=== PATIENT | male | born 1980 | race Two or more races ===

== ENCOUNTER 2021-05-04 12:41 | Inpatient (IN) | payer OTHER ==
[~2021-05-04] VITALS: Ht 172.7 cm; Wt 101.1 kg
[2021-05-04] MEDS ORDERED: FUROSEMIDE 40 MG/4 ML VIAL IV ONE ×2 (13:15→22:00)
[2021-05-04 13:52] LABS: Basophils # (auto) 0 10 ^3/uL (0-0.2); Eosinophils # (auto) 0 10 ^3/uL (0-0.8); Neutrophils # (auto) 2.5 10 ^3/uL (1.6-8.6); Red Cell Distribution Width 15.3 % (11.8-14.3); White Blood Cell 3.5 10^3/uL (4.4-10.8)
[2021-05-04 13:54] LABS: Eosinophils % (auto) 0.8 % (0.0-7.0); Hematocrit 49.5 % (41.0-53.0); Hemoglobin 17.3 g/dL (13.5-17.5); Lymphocytes # (auto) 0.6 10 ^3/uL (0.4-5.4); Lymphocytes % (auto) 15.6 % (10.0-50.0); Mean Corpuscular Hemoglobin 35.1 pg (28.0-32.0); Mean Corpuscular Hgb Conc. 34.9 g/dL (32.0-36.0); Mean Corpuscular Volume 100.5 fL (80.0-100.0); Monocytes # (auto) 0.4 10 ^3/uL (0-1.3); Monocytes % (auto) 12.5 % (0.0-12.0); Neutrophils % (auto) 70.1 % (37.0-80.0); Nucleated Red Blood Cells % 0.8 %; Red Blood Cells 4.93 10^6/uL (4.5-5.90)
[2021-05-04 14:11] LABS: Albumin 3.8 g/dL (3.4-5.0); Calcium 9.1 mg/dL (8.5-10.1); Magnesium 2.4 mg/dL (1.6-2.6)
[2021-05-04 14:16] LABS: BUN/Creatinine Ratio 14.6; Bilirubin, Total 4.1 mg/dL (0.2-1.0); Total Protein 8.3 g/dL (6.4-8.2)
[2021-05-04 14:23] LABS: Potassium 5.2 mmol/L (3.5-5.1)
[2021-05-04] MEDS ORDERED: chlordiazePOXIDE HCL 25 MG CAP PO ONE (17:30)
[2021-05-04] MEDS ORDERED: NITROGLYCERIN 0.4 MG SL TAB SL PRN (17:30)
[2021-05-04] MEDS ORDERED: ONDANSETRON HCL 4 MG/2 ML VIAL IV PRN (17:30)
[2021-05-04] MEDS ORDERED: FOLIC ACID 1 MG TAB PO ONE (17:30)
[2021-05-04] MEDS ORDERED: MULTIPLE VITAMIN TAB PO ONE (17:30)
[2021-05-04] MEDS ORDERED: MORPHINE SULFATE INJECTION 2 MG/ML SYRG IV PRN (17:30)
[2021-05-04] MEDS ORDERED: THIAMINE HCL 100 MG TAB PO ONE (17:30)
[2021-05-04] MEDS ORDERED: THIAMINE 100mg/ml INJ (200mg/2ml VIAL) IV ONE (17:30)
[2021-05-04] MEDS ORDERED: NICOTINE 14 MG/24HR TOPICAL PATCH TD ONE (18:15)
[2021-05-04 21:00] VITALS: BP 107/65
[2021-05-04] MEDS: LORazepam 0.5 MG TAB PO PRN (21:08)
[2021-05-04 22:00] VITALS: BP 107/65
[2021-05-05 01:35] LABS: Amphetamine Screen, Urine NEGATIVE (NEGATIVE); Barbiturate Scree,Urine NEGATIVE (NEGATIVE); Benzodiazephine Screen, Urine NEGATIVE (NEGATIVE); Cannabinoid Screen, Urine NEGATIVE (NEGATIVE); Cocaine Screen, Urine NEGATIVE (NEGATIVE); Opiate Scree,Urine NEGATIVE (NEGATIVE); Phencyclidine Screen, Urine NEGATIVE (NEGATIVE)
[2021-05-05 02:02] LABS: Urine Bacteria NONE SEEN /hpf (None Seen); Urine Blood Negative /uL (Negative); Urine Specific Gravity 1.004 (1.001-1.035); Urine WBC <1 /hpf (0 - 3)
[2021-05-05] MEDS ORDERED: LEVO75TA6 PO (04:59)
[2021-05-05 05:00] VITALS: BP 97/61
[2021-05-05 06:36] LABS: Basophils # (auto) 0 10 ^3/uL (0-0.2); Basophils % (auto) 1.2 % (0.0-2.0); Hematocrit 43.2 % (41.0-53.0); Hemoglobin 15.1 g/dL (13.5-17.5); Lymphocytes # (auto) 0.5 10 ^3/uL (0.4-5.4); Monocytes # (auto) 0.6 10 ^3/uL (0-1.3); Neutrophils # (auto) 2.4 10 ^3/uL (1.6-8.6); Red Cell Distribution Width 15.1 % (11.8-14.3)
[2021-05-05 06:40] LABS: Eosinophils # (auto) 0 10 ^3/uL (0-0.8); Eosinophils % (auto) 1.1 % (0.0-7.0); Lymphocytes % (auto) 13.4 % (10.0-50.0); Mean Corpuscular Hemoglobin 34.8 pg (28.0-32.0); Mean Corpuscular Hgb Conc. 34.9 g/dL (32.0-36.0); Mean Corpuscular Volume 99.8 fL (80.0-100.0); Monocytes % (auto) 16.9 % (0.0-12.0); Neutrophils % (auto) 67.4 % (37.0-80.0); Nucleated Red Blood Cells % 0.6 %; Red Blood Cells 4.33 10^6/uL (4.5-5.90); White Blood Cell 3.5 10^3/uL (4.4-10.8)
[2021-05-05 07:17] LABS: Calcium 8.7 mg/dL (8.5-10.1); Potassium 3.8 mmol/L (3.5-5.1)
[2021-05-05 08:00] VITALS: BP 102/76
[2021-05-05] MEDS ORDERED: PANTOPRAZOLE 40 MG/10 ML VIAL INJ IV ONE (10:00)
[2021-05-05 12:00] VITALS: BP 94/65
[2021-05-05 13:14] VITALS: BP 120/71
[2021-05-05] MEDS: LORazepam 0.5 MG TAB PO PRN (13:16)
[2021-05-05 16:00] VITALS: BP 101/66
[2021-05-05 22:47] VITALS: BP 97/46
[2021-05-06] VITALS (8 sets, daily range): BP systolic 95–123; BP diastolic 61–84
[2021-05-06] MEDS: LORazepam 0.5 MG TAB PO PRN ×3 (01:38→21:48)
[2021-05-06] MEDS: LEVOTHYROXINE SODIUM 25 MCG TAB PO SCH (09:00)
[2021-05-06 09:03] LABS: Basophils # (auto) 0.2 10 ^3/uL (0-0.2); Eosinophils # (auto) 0.1 10 ^3/uL (0-0.8); Hemoglobin 15.4 g/dL (13.5-17.5); Lymphocytes # (auto) 0.4 10 ^3/uL (0.4-5.4); Monocytes # (auto) 0.4 10 ^3/uL (0-1.3); Neutrophils # (auto) 2.2 10 ^3/uL (1.6-8.6)
[2021-05-06 09:05] LABS: Basophils % (auto) 5.5 % (0.0-2.0); Eosinophils % (auto) 2.5 % (0.0-7.0); Hematocrit 44.1 % (41.0-53.0); Lymphocytes % (auto) 11.5 % (10.0-50.0); Mean Corpuscular Hgb Conc. 34.9 g/dL (32.0-36.0); Mean Corpuscular Volume 100.3 fL (80.0-100.0); Neutrophils % (auto) 69.5 % (37.0-80.0); Nucleated Red Blood Cells % 0.3 %; Red Blood Cells 4.39 10^6/uL (4.5-5.90); Red Cell Distribution Width 15.2 % (11.8-14.3); White Blood Cell 3.2 10^3/uL (4.4-10.8)
[2021-05-06 09:18] LABS: BUN/Creatinine Ratio 18.6
[2021-05-06 09:20] LABS: Bilirubin, Total 3.7 mg/dL (0.2-1.0); Total Protein 6.7 g/dL (6.4-8.2)
[2021-05-06] MEDS ORDERED: FUROSEMIDE 40 MG/4 ML VIAL IV ONE (09:45)
[2021-05-06] MEDS: ENOXAPARIN SOD 40 MG/0.4 ML SYRINGE SC SCH (10:00)
[2021-05-06] MEDS ORDERED: IOHEXOL 350 MG/ML 100ML IJ ONE ×2 (15:15→16:24)
[2021-05-06] MEDS: FUROSEMIDE 40 MG/4 ML VIAL IV SCH (18:00)
[2021-05-07] MEDS: FUROSEMIDE 40 MG/4 ML VIAL IV SCH ×2 (05:11→18:00)
[2021-05-07 05:36] VITALS: BP 93/49
[2021-05-07 05:58] LABS: Basophils # (auto) 0 10 ^3/uL (0-0.2); Basophils % (auto) 1.1 % (0.0-2.0); Eosinophils # (auto) 0.1 10 ^3/uL (0-0.8); Eosinophils % (auto) 1.9 % (0.0-7.0); Hematocrit 46.7 % (41.0-53.0); Hemoglobin 16.1 g/dL (13.5-17.5); Lymphocytes # (auto) 0.5 10 ^3/uL (0.4-5.4); Lymphocytes % (auto) 12.7 % (10.0-50.0); Mean Corpuscular Hemoglobin 34.5 pg (28.0-32.0); Mean Corpuscular Hgb Conc. 34.4 g/dL (32.0-36.0); Mean Corpuscular Volume 100.5 fL (80.0-100.0); Monocytes # (auto) 0.6 10 ^3/uL (0-1.3); Monocytes % (auto) 15.9 % (0.0-12.0); Neutrophils # (auto) 2.5 10 ^3/uL (1.6-8.6); Neutrophils % (auto) 68.4 % (37.0-80.0); Nucleated Red Blood Cells % 0.2 %; Red Blood Cells 4.65 10^6/uL (4.5-5.90); Red Cell Distribution Width 15.2 % (11.8-14.3); White Blood Cell 3.6 10^3/uL (4.4-10.8)
[2021-05-07 06:15] LABS: Albumin 2.9 g/dL (3.4-5.0); Calcium 8.3 mg/dL (8.5-10.1)
[2021-05-07 06:19] LABS: Bilirubin, Total 2.6 mg/dL (0.2-1.0); Total Protein 6.8 g/dL (6.4-8.2)
[2021-05-07] MEDS: LEVOTHYROXINE SODIUM 25 MCG TAB PO SCH ×2 (06:28→09:18)
[2021-05-07 08:41] VITALS: BP 107/66
[2021-05-07] MEDS: ENOXAPARIN SOD 40 MG/0.4 ML SYRINGE SC SCH (09:15)
[2021-05-07 11:59] VITALS: BP 99/64
[2021-05-07 16:00] VITALS: BP 102/66
[2021-05-07 18:55] VITALS: BP 108/72
[2021-05-07] MEDS: LORazepam 0.5 MG TAB PO PRN (18:58)
[2021-05-07 22:09] VITALS: BP 102/60
[2021-05-08 05:00] VITALS: BP 98/63
[2021-05-08 05:39] LABS: Basophils # (auto) 0 10 ^3/uL (0-0.2); Eosinophils # (auto) 0.1 10 ^3/uL (0-0.8); Lymphocytes # (auto) 0.5 10 ^3/uL (0.4-5.4); Monocytes # (auto) 0.5 10 ^3/uL (0-1.3); Neutrophils % (auto) 63.4 % (37.0-80.0); Red Cell Distribution Width 15.3 % (11.8-14.3)
[2021-05-08 05:43] LABS: Basophils % (auto) 0.9 % (0.0-2.0); Eosinophils % (auto) 3.3 % (0.0-7.0); Hematocrit 49.1 % (41.0-53.0); Lymphocytes % (auto) 17.3 % (10.0-50.0); Mean Corpuscular Hemoglobin 35.2 pg (28.0-32.0); Mean Corpuscular Hgb Conc. 34.7 g/dL (32.0-36.0); Mean Corpuscular Volume 101.4 fL (80.0-100.0); Monocytes % (auto) 15.1 % (0.0-12.0); Nucleated Red Blood Cells % 0.7 %; Red Blood Cells 4.84 10^6/uL (4.5-5.90); White Blood Cell 3.1 10^3/uL (4.4-10.8)
[2021-05-08 05:48] LABS: INR 1.28 (0.9-1.15); Partial Thromboplastin Time 29.1 sec (23.6-33.0)
[2021-05-08] MEDS: FUROSEMIDE 40 MG/4 ML VIAL IV SCH (06:00)
[2021-05-08 06:22] LABS: BUN/Creatinine Ratio 21.2; Bilirubin, Total 2.4 mg/dL (0.2-1.0); Calcium 9.4 mg/dL (8.5-10.1); Total Protein 7.1 g/dL (6.4-8.2)
[2021-05-08 09:28] VITALS: BP 99/75
[2021-05-08] MEDS ORDERED: IOHEXOL 350 MG/ML 100ML IJ ONE (10:20)
[2021-05-08] MEDS ORDERED: LIDOCAINE 2%HCL (LOCAL ANESTH.) INJ 20ML MDV ONE (10:21)
[2021-05-08] MEDS ORDERED: MIDAZOLAM HCL 2MG/2ML 2ml VIAL (1mg/ml) ONE (10:24)
[2021-05-08] MEDS ORDERED: fentaNYL CITRATE 100 MCG/2 ML VL ONE (10:24)
[2021-05-08] MEDS ORDERED: ANGIOMAX 250 MG VIAL IV ONE (10:24)
[2021-05-08] MEDS ORDERED: SODIUM CHL 0.9% 0 ML ONE (10:24)
[2021-05-08 14:52] VITALS: BP 101/75
[2021-05-08] MEDS: LORazepam 0.5 MG TAB PO PRN (16:00)
[2021-05-08 17:00] VITALS: BP 98/68
[2021-05-08] MEDS: FUROSEMIDE 20 MG/2 ML VIAL IV SCH (18:00)
[2021-05-08 21:46] VITALS: BP 101/68
[2021-05-09 05:15] VITALS: BP 105/70
[2021-05-09] MEDS: LEVOTHYROXINE SODIUM 25 MCG TAB PO SCH (06:18)
[2021-05-09] MEDS: FUROSEMIDE 20 MG/2 ML VIAL IV SCH (06:18)
[2021-05-09 08:00] VITALS: BP 102/75
[2021-05-09 10:16] LABS: Albumin 3.3 g/dL (3.4-5.0); BUN/Creatinine Ratio 20.2; Calcium 9.5 mg/dL (8.5-10.1); Potassium 4.2 mmol/L (3.5-5.1)
[2021-05-09 10:18] LABS: Basophils # (auto) 0.1 10 ^3/uL (0-0.2); Basophils % (auto) 1.6 % (0.0-2.0); Eosinophils # (auto) 0.1 10 ^3/uL (0-0.8); Eosinophils % (auto) 3.4 % (0.0-7.0); Hematocrit 51.6 % (41.0-53.0); Hemoglobin 17.7 g/dL (13.5-17.5); Lymphocytes # (auto) 0.5 10 ^3/uL (0.4-5.4); Lymphocytes % (auto) 15.1 % (10.0-50.0); Mean Corpuscular Hemoglobin 34.7 pg (28.0-32.0); Mean Corpuscular Hgb Conc. 34.3 g/dL (32.0-36.0); Mean Corpuscular Volume 101.1 fL (80.0-100.0); Monocytes # (auto) 0.6 10 ^3/uL (0-1.3); Monocytes % (auto) 16.5 % (0.0-12.0); Neutrophils # (auto) 2.2 10 ^3/uL (1.6-8.6); Neutrophils % (auto) 63.4 % (37.0-80.0); Nucleated Red Blood Cells % 0.1 %; Red Cell Distribution Width 15.1 % (11.8-14.3); White Blood Cell 3.5 10^3/uL (4.4-10.8)
[2021-05-09 10:27] LABS: Bilirubin, Total 2.7 mg/dL (0.2-1.0); Total Protein 7.4 g/dL (6.4-8.2)
[2021-05-09] MEDS: LORazepam 0.5 MG TAB PO PRN (10:27)
[2021-05-09] MEDS ORDERED: SODIUM CHLORIDE 0.9% 500 ML IV ONE (11:15)
[2021-05-09] MEDS: SILDENAFIL CITRATE 20 MG TAB PO SCH ×2 (15:30→20:43)
[2021-05-09 22:29] VITALS: BP 98/63
[2021-05-10 05:08] VITALS: BP 102/64
[2021-05-10] MEDS: LEVOTHYROXINE SODIUM 25 MCG TAB PO SCH (05:58)
[2021-05-10] MEDS: SILDENAFIL CITRATE 20 MG TAB PO SCH (08:00)
[2021-05-10] MEDS ORDERED: GADOTERATE MEG 10 MMOL/20ml INJ (0.5MMOL/ml) IV ONE (08:29)
[2021-05-10 08:49] LABS: Eosinophils # (auto) 0.1 10 ^3/uL (0-0.8); Hematocrit 52.5 % (41.0-53.0); Lymphocytes # (auto) 0.4 10 ^3/uL (0.4-5.4); Mean Corpuscular Hgb Conc. 34.2 g/dL (32.0-36.0); Monocytes # (auto) 0.4 10 ^3/uL (0-1.3); Neutrophils # (auto) 2.5 10 ^3/uL (1.6-8.6); Red Cell Distribution Width 15.1 % (11.8-14.3); White Blood Cell 3.4 10^3/uL (4.4-10.8)
[2021-05-10 08:52] LABS: Basophils # (auto) 0 10 ^3/uL (0-0.2); Basophils % (auto) 0.9 % (0.0-2.0); Eosinophils % (auto) 2.5 % (0.0-7.0); Lymphocytes % (auto) 11.8 % (10.0-50.0); Mean Corpuscular Hemoglobin 34.5 pg (28.0-32.0); Mean Corpuscular Volume 101.1 fL (80.0-100.0); Monocytes % (auto) 12.4 % (0.0-12.0); Neutrophils % (auto) 72.4 % (37.0-80.0); Nucleated Red Blood Cells % 2.7 %
[2021-05-10 09:00] VITALS: BP 99/65
[2021-05-10 09:18] LABS: Albumin 3.2 g/dL (3.4-5.0); Calcium 8.8 mg/dL (8.5-10.1); Potassium 4.3 mmol/L (3.5-5.1)
[2021-05-10 09:22] LABS: BUN/Creatinine Ratio 22.2; Bilirubin, Total 3.2 mg/dL (0.2-1.0); Total Protein 7.3 g/dL (6.4-8.2)
[2021-05-10] MEDS ORDERED: SODIUM CHLORIDE 0.9% 1,000 ML IV SCH (10:15)
[2021-05-10] MEDS ORDERED: SILD20TA PO (10:37)
[2021-05-10] MEDS ORDERED: LEV25T PO (10:37)
[2021-05-10 11:32] VITALS: BP 99/65
[2021-05-10 13:00] VITALS: BP 100/75
== END 2021-05-10 13:27 | disposition home or self-care (01) | DRG 192 ==
LOC: ER 12:41 → EDBD 12:41 → OVERFLOW 17:16 → WEST WING 19:56 → TELE-WESTW 05-07 11:29
PROVIDERS: ADMIT Internal Medicine; ATTEND Internal Medicine
PROC: 4A023N8 Measurement of Cardiac Sampling and Pressure, Bilateral, Percutaneous Approach (ICD-10-PCS; principal; 2021-05-08)
PROC: B2111ZZ Fluoroscopy of Multiple Coronary Arteries using Low Osmolar Contrast (ICD-10-PCS; 2021-05-08)
PROC: B2151ZZ Fluoroscopy of Left Heart using Low Osmolar Contrast (ICD-10-PCS; 2021-05-08)
DX: I50.33 Acute on chronic diastolic (congestive) heart failure (principal); K70.40 Alcoholic hepatic failure without coma; I27.29 Other secondary pulmonary hypertension; D69.6 Thrombocytopenia, unspecified; I31.3 Pericardial effusion (noninflammatory); I95.9 Hypotension, unspecified; E87.1 Hypo-osmolality and hyponatremia; E87.5 Hyperkalemia; E03.9 Hypothyroidism, unspecified; F17.210 Nicotine dependence, cigarettes, uncomplicated; D69.59 Other secondary thrombocytopenia; I07.1 Rheumatic tricuspid insufficiency; E66.9 Obesity, unspecified; F10.229 Alcohol dependence with intoxication, unspecified; Z20.822 Contact with and (suspected) exposure to COVID-19; K74.60 Unspecified cirrhosis of liver; R74.8 Abnormal levels of other serum enzymes; F10.239 Alcohol dependence with withdrawal, unspecified; K70.11 Alcoholic hepatitis with ascites; Z91.14 Patient's other noncompliance with medication regimen; Z86.718 Personal history of other venous thrombosis and embolism; Z83.3 Family history of diabetes mellitus; Z88.0 Allergy status to penicillin; Z68.34 Body mass index [BMI] 34.0-34.9, adult; Y90.5 Blood alcohol level of 100-119 mg/100 ml
CPT/HCPCS: 36415; 71045; 71275; 74183; 76705; 78582; 80048; 80053; 80061; 80307; 80320; 81001; 82140; 83036; 83735; 83880; 84439; 84443; 84484; 85025; 85379; 85610; 85730; 86850; 86900; 86901; 87040; 87426; 93005; 93306; 93460; 93970; 96360; 96374; 99152; 99153; C1751; C9113; G0378; J2250

== ENCOUNTER 2021-11-01 12:44 | Inpatient (IN) | payer OTHER ==
[~2021-11-01] VITALS: Ht 170.2 cm; Wt 112.2 kg
[~2021-11-01 12:44] MED LIST: LEV25T PO; LEVO75TA6 PO; SILD20TA PO
[2021-11-01 13:55] LABS: Basophils # (auto) 0.1 10 ^3/uL (0-0.2); Basophils % (auto) 1.2 % (0.0-2.0); Eosinophils # (auto) 0 10 ^3/uL (0-0.8); Hematocrit 49.6 % (41.0-53.0); Hemoglobin 16.2 g/dL (13.5-17.5); Lymphocytes # (auto) 0.5 10 ^3/uL (0.4-5.4); Lymphocytes % (auto) 10.4 % (10.0-50.0); Mean Corpuscular Hemoglobin 33.7 pg (28.0-32.0); Mean Corpuscular Hgb Conc. 32.6 g/dL (32.0-36.0); Mean Corpuscular Volume 103.4 fL (80.0-100.0); Monocytes # (auto) 0.5 10 ^3/uL (0-1.3); Monocytes % (auto) 10.2 % (0.0-12.0); Neutrophils # (auto) 3.4 10 ^3/uL (1.6-8.6); Neutrophils % (auto) 77.2 % (37.0-80.0); Nucleated Red Blood Cells % 0.3 %; Red Cell Distribution Width 17.6 % (11.8-14.3); White Blood Cell 4.4 10^3/uL (4.4-10.8)
[2021-11-01 14:17] LABS: Albumin 3.5 g/dL (3.4-5.0); Calcium 8.8 mg/dL (8.5-10.1); Magnesium 2.1 mg/dL (1.6-2.6); Potassium 4.3 mmol/L (3.5-5.1)
[2021-11-01 14:20] LABS: Bilirubin, Total 4.3 mg/dL (0.2-1.0); Total Protein 8.1 g/dL (6.4-8.2)
[2021-11-01] MEDS ORDERED: LACTULOSE 20Gm/30ML SOLN PO ONE (17:00)
[2021-11-01] MEDS ORDERED: SPIRONOLACTONE 25 MG TAB PO ONE (17:00)
[2021-11-01] MEDS ORDERED: FUROSEMIDE 40 MG/4 ML VIAL IV ONE (17:00)
[2021-11-01 17:06] LABS: Urine Bacteria NONE SEEN /hpf (None Seen); Urine Blood Negative /uL (Negative); Urine Mucus FEW (None Seen); Urine Specific Gravity 1.013 (1.001-1.035); Urine WBC 1 /hpf (0 - 3)
[2021-11-01 18:09] LABS: INR 1.21 (0.9-1.15); Partial Thromboplastin Time 30.8 sec (24.6-33.4)
[2021-11-02] MEDS ORDERED: ONDANSETRON HCL 4 MG/2 ML VIAL IV PRN (00:45)
[2021-11-02] MEDS ORDERED: TEMAZEPAM 15 MG CAP PO PRN (00:45)
[2021-11-02] MEDS: SILDENAFIL CITRATE 20 MG TAB PO SCH ×3 (08:00→21:28)
[2021-11-02] MEDS: LEVOTHYROXINE SODIUM 100 MCG TAB PO SCH (08:15)
[2021-11-02] MEDS: SPIRONOLACTONE 25 MG TAB PO SCH (10:00)
[2021-11-02] MEDS: FUROSEMIDE 40 MG TAB PO SCH (10:00)
[2021-11-02] MEDS: PANTOPRAZOLE 40 MG TAB PO SCH (10:51)
[2021-11-02] MEDS: levoFLOXacin 500MG 100 ML IV SCH (10:51)
[2021-11-02] MEDS ORDERED: ENOXAPARIN SOD 100 MG/1 ML SYRINGE SC ONE (12:30)
[2021-11-02] MEDS: chlordiazePOXIDE HCL 25 MG CAP PO PRN (21:28)
[2021-11-02] MEDS: ENOXAPARIN SOD 100 MG/1 ML SYRINGE SC SCH ×2 (21:28→22:50)
[2021-11-03 05:29] VITALS: BP 96/64
[2021-11-03] MEDS: LEVOTHYROXINE SODIUM 100 MCG TAB PO SCH (06:12)
[2021-11-03 06:30] LABS: Lymphocytes # (auto) 0.5 10 ^3/uL (0.4-5.4); Monocytes # (auto) 0.5 10 ^3/uL (0-1.3); Neutrophils # (auto) 2.8 10 ^3/uL (1.6-8.6); Red Blood Cells 4.17 10^6/uL (4.5-5.90); White Blood Cell 3.9 10^3/uL (4.4-10.8)
[2021-11-03 06:33] LABS: Basophils # (auto) 0.1 10 ^3/uL (0-0.2); Basophils % (auto) 1.4 % (0.0-2.0); Eosinophils # (auto) 0.1 10 ^3/uL (0-0.8); Eosinophils % (auto) 1.9 % (0.0-7.0); Hematocrit 43.3 % (41.0-53.0); Hemoglobin 14.3 g/dL (13.5-17.5); Lymphocytes % (auto) 11.6 % (10.0-50.0); Mean Corpuscular Hemoglobin 34.4 pg (28.0-32.0); Mean Corpuscular Hgb Conc. 33.1 g/dL (32.0-36.0); Monocytes % (auto) 13.6 % (0.0-12.0); Neutrophils % (auto) 71.5 % (37.0-80.0); Nucleated Red Blood Cells % 0.2 %; Red Cell Distribution Width 17.2 % (11.8-14.3)
[2021-11-03 06:35] LABS: BUN/Creatinine Ratio 16.2; Potassium 4.5 mmol/L (3.5-5.1)
[2021-11-03 06:43] LABS: Total Protein 6.7 g/dL (6.4-8.2)
[2021-11-03] MEDS: chlordiazePOXIDE HCL 25 MG CAP PO PRN ×3 (09:06→22:46)
[2021-11-03 09:19] VITALS: BP 100/72
[2021-11-03] MEDS: levoFLOXacin 500MG 100 ML IV SCH (09:57)
[2021-11-03] MEDS: SILDENAFIL CITRATE 20 MG TAB PO SCH ×3 (09:57→21:27)
[2021-11-03] MEDS: FUROSEMIDE 40 MG TAB PO SCH (09:58)
[2021-11-03] MEDS: PANTOPRAZOLE 40 MG TAB PO SCH (09:58)
[2021-11-03] MEDS: SPIRONOLACTONE 25 MG TAB PO SCH (09:58)
[2021-11-03] MEDS: ENOXAPARIN SOD 100 MG/1 ML SYRINGE SC SCH ×2 (10:03→21:28)
[2021-11-03] MEDS: MIDODRINE HCL 10 MG TAB PO SCH ×2 (12:45→18:20)
[2021-11-03 13:14] LABS: Creatinine, Urine 72 mg/dL (30.0-125.0); Sodium Urine 44 mmol/L (40-220)
[2021-11-03 13:17] LABS: Alcohol, Urine < 3.0 mg/dL (0-10); Amphetamine Screen, Urine NEGATIVE (NEGATIVE); Barbiturate Scree,Urine NEGATIVE (NEGATIVE); Benzodiazephine Screen, Urine NEGATIVE (NEGATIVE); Cannabinoid Screen, Urine NEGATIVE (NEGATIVE); Cocaine Screen, Urine NEGATIVE (NEGATIVE); Opiate Scree,Urine NEGATIVE (NEGATIVE); Phencyclidine Screen, Urine NEGATIVE (NEGATIVE)
[2021-11-03 17:08] VITALS: BP 93/65
[2021-11-03 22:00] VITALS: BP 96/65
[2021-11-04] VITALS (7 sets, daily range): BP systolic 87–140; BP diastolic 54–84
[2021-11-04] MEDS: chlordiazePOXIDE HCL 25 MG CAP PO PRN ×3 (05:40→18:15)
[2021-11-04] MEDS: MIDODRINE HCL 10 MG TAB PO SCH ×3 (05:40→17:57)
[2021-11-04] MEDS: LEVOTHYROXINE SODIUM 100 MCG TAB PO SCH (06:24)
[2021-11-04 06:52] LABS: Basophils # (auto) 0 10 ^3/uL (0-0.2); Eosinophils # (auto) 0.1 10 ^3/uL (0-0.8); Hematocrit 42.3 % (41.0-53.0); Hemoglobin 14.1 g/dL (13.5-17.5); Lymphocytes # (auto) 0.5 10 ^3/uL (0.4-5.4); Mean Corpuscular Hgb Conc. 33.4 g/dL (32.0-36.0); Monocytes # (auto) 0.6 10 ^3/uL (0-1.3)
[2021-11-04 06:55] LABS: BUN/Creatinine Ratio 20.9; Basophils % (auto) 0.9 % (0.0-2.0); Calcium 8.9 mg/dL (8.5-10.1); Eosinophils % (auto) 2.1 % (0.0-7.0); Lymphocytes % (auto) 14.4 % (10.0-50.0); Mean Corpuscular Hemoglobin 34.6 pg (28.0-32.0); Mean Corpuscular Volume 103.5 fL (80.0-100.0); Neutrophils # (auto) 2.6 10 ^3/uL (1.6-8.6); Neutrophils % (auto) 67.6 % (37.0-80.0); Nucleated Red Blood Cells % 0.3 %; Red Blood Cells 4.09 10^6/uL (4.5-5.90); Red Cell Distribution Width 17.5 % (11.8-14.3); White Blood Cell 3.8 10^3/uL (4.4-10.8)
[2021-11-04] MEDS: SILDENAFIL CITRATE 20 MG TAB PO SCH ×3 (09:38→20:41)
[2021-11-04] MEDS: PANTOPRAZOLE 40 MG TAB PO SCH (09:38)
[2021-11-04] MEDS: levoFLOXacin 500MG 100 ML IV SCH (09:38)
[2021-11-04] MEDS: ENOXAPARIN SOD 100 MG/1 ML SYRINGE SC SCH (09:39)
[2021-11-04] MEDS: FUROSEMIDE 40 MG TAB PO SCH (09:39)
[2021-11-05] MEDS: ENOXAPARIN SOD 100 MG/1 ML SYRINGE SC SCH ×2 (00:18→08:21)
[2021-11-05] MEDS: chlordiazePOXIDE HCL 25 MG CAP PO PRN ×2 (00:24→06:24)
[2021-11-05 04:51] VITALS: BP 81/50
[2021-11-05] MEDS: MIDODRINE HCL 10 MG TAB PO SCH ×2 (05:19→11:26)
[2021-11-05] MEDS: LEVOTHYROXINE SODIUM 100 MCG TAB PO SCH (06:05)
[2021-11-05] MEDS: levoFLOXacin 500MG 100 ML IV SCH (08:20)
[2021-11-05] MEDS: SILDENAFIL CITRATE 20 MG TAB PO SCH ×2 (08:20→13:17)
[2021-11-05] MEDS: PANTOPRAZOLE 40 MG TAB PO SCH (08:20)
[2021-11-05] MEDS: FUROSEMIDE 40 MG TAB PO SCH (09:25)
[2021-11-05] MEDS ORDERED: FURO1TAB31 PO (12:41)
[2021-11-05] MEDS ORDERED: MID10T PO (12:41)
[2021-11-05] MEDS ORDERED: SILD20TA PO (12:41)
[2021-11-05 13:00] VITALS: BP 90/63
[2021-11-05 13:23] VITALS: BP 90/60
[2021-11-05] MEDS ORDERED: OCTREOTIDE ACETATE 100 MCG/ML VL SUBCUT SCH (14:00)
[2021-11-05] MEDS ORDERED: FUROSEMIDE 100 MG/10ML VIAL IV SCH (18:00)
== END 2021-11-05 14:40 | disposition home or self-care (01) | DRG 280 ==
LOC: ER 12:44 → OVERFLOW 11-02 00:41 → CENTRAL 11-02 21:46 → TELE-CENTR 11-02 22:40
PROVIDERS: ADMIT Nurse Practitioner; ATTEND Internal Medicine Pulmonary Disease
DX: K70.30 Alcoholic cirrhosis of liver without ascites (principal); I50.21 Acute systolic (congestive) heart failure; D69.6 Thrombocytopenia, unspecified; J18.9 Pneumonia, unspecified organism; I82.432 Acute embolism and thrombosis of left popliteal vein; E87.1 Hypo-osmolality and hyponatremia; I11.0 Hypertensive heart disease with heart failure; J98.11 Atelectasis; D75.89 Other specified diseases of blood and blood-forming organs; E03.9 Hypothyroidism, unspecified; Z20.822 Contact with and (suspected) exposure to COVID-19; F17.210 Nicotine dependence, cigarettes, uncomplicated; F10.239 Alcohol dependence with withdrawal, unspecified; E66.9 Obesity, unspecified; I45.10 Unspecified right bundle-branch block; R14.0 Abdominal distension (gaseous); Z68.39 Body mass index [BMI] 39.0-39.9, adult; Z79.899 Other long term (current) drug therapy; Z83.3 Family history of diabetes mellitus; Z88.0 Allergy status to penicillin
CPT/HCPCS: 36415; 71045; 76700; 80048; 80053; 80307; 81001; 82140; 82570; 83735; 83880; 83935; 84300; 84443; 84484; 85025; 85379; 85610; 85730; 93005; 93306; 93970; 96374; G0378; J1956; J2405

== ENCOUNTER 2023-07-13 11:54 | Inpatient (IN) | payer MEDICAID ==
[~2023-07-13] VITALS: Ht 172.7 cm; Wt 88.1 kg
[~2023-07-13 11:54] MED LIST changes: +FURO1TAB31 PO; -LEV25T PO; +MID10T PO; +SPIR25TA PO
[2023-07-13 13:36] LABS: Basophils # (auto) 0.1 10 ^3/uL (0-0.2); Basophils % (auto) 2.1 % (0.0-2.0); Eosinophils # (auto) 0.2 10 ^3/uL (0-0.8); Lymphocytes # (auto) 0.5 10 ^3/uL (0.4-5.4); Monocytes # (auto) 0.6 10 ^3/uL (0-1.3); White Blood Cell 4.7 10^3/uL (4.4-10.8)
[2023-07-13 13:38] LABS: Eosinophils % (auto) 4.2 % (0.0-7.0); Hematocrit 39.5 % (41.0-53.0); Hemoglobin 12.6 g/dL (13.5-17.5); Lymphocytes % (auto) 11.5 % (10.0-50.0); Mean Corpuscular Hemoglobin 32.9 pg (28.0-32.0); Mean Corpuscular Volume 102.8 fL (80.0-100.0); Monocytes % (auto) 13.2 % (0.0-12.0); Neutrophils # (auto) 3.3 10 ^3/uL (1.6-8.6); Nucleated Red Blood Cells % 0.3 %; Red Blood Cells 3.84 10^6/uL (4.5-5.90); Red Cell Distribution Width 17.7 % (11.8-14.3)
[2023-07-13 13:49] LABS: INR 1.27 (0.9-1.15); Partial Thromboplastin Time 28.6 SEC (24.5-34.5); Prothrombin Time 13.2 sec (9.3-11.8)
[2023-07-13 13:51] LABS: Alanine Aminotransferase 16 U/L (7-40); Albumin 3.8 g/dL (3.2-4.8); Alkaline Phosphatase 269 U/L (46-116); Anion Gap 11 (5-15); Aspartate Aminotransferase 40 U/L (13-40); Bilirubin, Total 3.6 mg/dL (0.2-1.0); Blood Urea Nitrogen 36 mg/dL (9-23); Calcium 9.7 mg/dL (8.5-10.1); Carbon Dioxide 17 mmol/L (20-30); Chloride 102 mmol/L (98-107); Glucose 75 mg/dL (74-106); Sodium 130 mmol/L (136-145); Total Protein 7.6 g/dL (5.7-8.2)
[2023-07-13 14:48] LABS: Potassium 6.1 mmol/L (3.5-5.1)
[2023-07-13] MEDS ORDERED: ACETAMINOPHEN 325 MG TAB PO PRN (15:30)
[2023-07-13] MEDS ORDERED: NITROGLYCERIN 0.4 MG SL TAB SL PRN (15:30)
[2023-07-13] MEDS ORDERED: MORPHINE SULFATE INJ 2 MG/ml SYRG IV PRN (15:30)
[2023-07-13] MEDS: ALBUTEROL SULF 2.5 MG/0.5ML(0.5%) NEB SOLN NEB ONE (15:59)
[2023-07-13] MEDS: DEXTROSE (50%) 50ML SYRG IV ONE (17:40)
[2023-07-13] MEDS: SODIUM BICARB 8.4% 50Meq/50ml SYR INJ IV ONE (17:41)
[2023-07-13] MEDS: InsuLIN REG 1unit/0.01ml Soln (100units/ml) IV ONE (17:41)
[2023-07-13] MEDS: SODIUM ZIRCONIUM CYCL 10 GM PAK PO ONE (17:42)
[2023-07-13] MEDS: LACTULOSE 20Gm/30ML SOLN PO ONE (17:42)
[2023-07-13 17:48] VITALS: PULSE 105; RESP 22; O2SAT 95
[2023-07-13] MEDS: MIDODRINE HCL 10 MG TAB PO SCH (18:32)
[2023-07-13 19:40] VITALS: PULSE 94; RESP 24
[2023-07-13] MEDS: SILDENAFIL CITRATE 20 MG TAB PO SCH (20:10)
[2023-07-13 20:37] LABS: Protein, Urine 14.8 mg/dL (0.0-11.9); Urine Bacteria FEW /hpf (None Seen); Urine Blood 1+ /uL (Negative); Urine Clarity Clear (Clear); Urine Color Light-Yellow (Yellow); Urine Protein, UAD Negative (Negative); Urine Urobilinogen Normal (Negative); Urine WBC 5 /hpf (0 - 3)
[2023-07-13 20:39] LABS: Creatinine, Urine 58.95 mg/dL (30.0-125.0)
[2023-07-13] MEDS: LACTULOSE 20Gm/30ML SOLN PO SCH (22:40)
[2023-07-13] MEDS: HYDROcodone-ACET 5/325MG TAB PO PRN (23:35)
[2023-07-13] MEDS: NOREPINEPHRINE 8 MG/250ML KIT 250 ML IV SCH (23:35)
[2023-07-14 04:19] LABS: Basophils # (auto) 0.1 10 ^3/uL (0-0.2); Basophils % (auto) 1.4 % (0.0-2.0); Eosinophils # (auto) 0.1 10 ^3/uL (0-0.8); Hematocrit 37.5 % (41.0-53.0); Hemoglobin 12.2 g/dL (13.5-17.5); Lymphocytes # (auto) 0.5 10 ^3/uL (0.4-5.4); Monocytes # (auto) 0.6 10 ^3/uL (0-1.3); Nucleated Red Blood Cells % 0.2 %; White Blood Cell 6.2 10^3/uL (4.4-10.8)
[2023-07-14 04:22] LABS: Eosinophils % (auto) 1.5 % (0.0-7.0); Lymphocytes % (auto) 7.7 % (10.0-50.0); Mean Corpuscular Hgb Conc. 32.5 g/dL (32.0-36.0); Mean Corpuscular Volume 101.5 fL (80.0-100.0); Monocytes % (auto) 9.4 % (0.0-12.0); Red Cell Distribution Width 17.3 % (11.8-14.3)
[2023-07-14 04:40] LABS: Alanine Aminotransferase 14 U/L (7-40); Albumin 3.5 g/dL (3.2-4.8); Alkaline Phosphatase 265 U/L (46-116); Anion Gap 12 (5-15); Aspartate Aminotransferase 38 U/L (13-40); BUN/Creatinine Ratio 21.9 (10.0-20.0); Calcium 9.3 mg/dL (8.5-10.1); Carbon Dioxide 18 mmol/L (20-30); Chloride 102 mmol/L (98-107); Glucose 155 mg/dL (74-106); Potassium 5.2 mmol/L (3.5-5.1); Sodium 132 mmol/L (136-145)
[2023-07-14 04:41] LABS: Blood Urea Nitrogen 61 mg/dL (9-23); Total Protein 6.8 g/dL (5.7-8.2)
[2023-07-14] MEDS: LEVOTHYROXINE SODIUM 25 MCG TAB PO SCH (06:53)
[2023-07-14] MEDS: ALBUMIN 25% 100 ML IV SCH (09:55)
[2023-07-14] MEDS: SODIUM BICARB 8.4% 50Meq/50ml SYR Vial IV ONE (09:55)
[2023-07-14] MEDS: ENOXAPARIN SOD 40 MG/0.4 ML SYRINGE SC SCH (09:56)
[2023-07-14] MEDS ORDERED: SPIRONOLACTONE 25 MG TAB PO SCH (10:00)
[2023-07-14 11:19] VITALS: O2SAT 96
[2023-07-14 12:51] LABS: Amphetamine Screen, Urine Neg (NEGATIVE); Barbiturate Scree,Urine Neg (NEGATIVE); Benzodiazephine Screen, Urine Neg (NEGATIVE); Cannabinoid Screen, Urine Neg (NEGATIVE); Cocaine Screen, Urine Neg (NEGATIVE); Opiate Scree,Urine Neg (NEGATIVE); Phencyclidine Screen, Urine Neg (NEGATIVE)
[2023-07-14] MEDS: SODIUM ZIRCONIUM CYCL 10 GM PAK PO SCH (14:00)
[2023-07-14 19:30] VITALS: PULSE 94; RESP 16; O2SAT 94
[2023-07-15] VITALS (93 sets, daily range): BP systolic 84–130; BP diastolic 47–84; PULSE 77–189; RESP 11–23; TEMP 97.7–98.7; O2SAT 86–96
[2023-07-15 07:02] LABS: Anion Gap 11 (5-15); Carbon Dioxide 22 mmol/L (20-30); Chloride 102 mmol/L (98-107); Potassium 4.1 mmol/L (3.5-5.1); Sodium 135 mmol/L (136-145)
[2023-07-15 07:03] LABS: Calcium 9.4 mg/dL (8.5-10.1)
[2023-07-15 07:08] LABS: BUN/Creatinine Ratio 20.3 (10.0-20.0); Glucose 122 mg/dL (74-106)
[2023-07-15 07:12] LABS: Blood Urea Nitrogen 40 mg/dL (9-23)
[2023-07-15] MEDS: DOPamine 1600MCG/ML D5W 250 ML IV SCH (11:48)
[2023-07-15 13:21] LABS: % Iron Saturation 34.3 % (20-55)
[2023-07-15] MEDS: OCTREOTIDE ACETATE 100 MCG/ML VL SUBCUT SCH (14:37)
[2023-07-15] MEDS: BUMETANIDE 2.5mg/10ml (0.25 mg/ml) INJ IV SCH (17:41)
[2023-07-16] VITALS (94 sets, daily range): BP systolic 78–123; BP diastolic 42–81; PULSE 84–119; RESP 12–26; TEMP 97.6–98.3; O2SAT 89–99
[2023-07-17] VITALS (97 sets, daily range): BP systolic 78–108; BP diastolic 43–78; PULSE 82–213; RESP 11–27; TEMP 97.6–99.1; O2SAT 84–98
[2023-07-17 05:42] LABS: Basophils # (auto) 0 10 ^3/uL (0-0.2); Basophils % (auto) 0.8 % (0.0-2.0); Eosinophils # (auto) 0.3 10 ^3/uL (0-0.8); Eosinophils % (auto) 6.7 % (0.0-7.0); Hematocrit 38.5 % (41.0-53.0); Hemoglobin 12.5 g/dL (13.5-17.5); Lymphocytes # (auto) 0.4 10 ^3/uL (0.4-5.4); Lymphocytes % (auto) 7.8 % (10.0-50.0); Mean Corpuscular Hemoglobin 32.2 pg (28.0-32.0); Mean Corpuscular Hgb Conc. 32.5 g/dL (32.0-36.0); Mean Corpuscular Volume 99.2 fL (80.0-100.0); Monocytes # (auto) 0.5 10 ^3/uL (0-1.3); Monocytes % (auto) 9.9 % (0.0-12.0); Neutrophils # (auto) 3.7 10 ^3/uL (1.6-8.6); Neutrophils % (auto) 74.8 % (37.0-80.0); Nucleated Red Blood Cells % 0.5 %; Red Blood Cells 3.88 10^6/uL (4.5-5.90); Red Cell Distribution Width 16.8 % (11.8-14.3)
[2023-07-17 06:07] LABS: Alanine Aminotransferase 11 U/L (7-40); Albumin 3.4 g/dL (3.2-4.8); Alkaline Phosphatase 195 U/L (46-116); Anion Gap 6 (5-15); Aspartate Aminotransferase 21 U/L (13-40); BUN/Creatinine Ratio 17.4 (10.0-20.0); Blood Urea Nitrogen 24 mg/dL (9-23); Calcium 8.9 mg/dL (8.5-10.1); Carbon Dioxide 29 mmol/L (20-30); Chloride 103 mmol/L (98-107); Glucose 111 mg/dL (74-106); Potassium 3.5 mmol/L (3.5-5.1); Sodium 138 mmol/L (136-145)
[2023-07-17 06:08] LABS: Bilirubin, Total 3.4 mg/dL (0.2-1.0); Total Protein 6.4 g/dL (5.7-8.2)
[2023-07-17] MEDS ORDERED: POTASSIUM EFFERVESENT TAB 25 MEQ PO ONE (15:15)
[2023-07-17 16:12] LABS: Triglycerides 88 mg/dL (< 150)
[2023-07-17 16:13] LABS: LDL Cholesterol 50 mg/dL (< 100)
[2023-07-17 16:14] LABS: HDL Cholesterol 19 mg/dL (40-59)
[2023-07-17 16:15] LABS: Cholesterol 83 mg/dL (< 200)
[2023-07-17] MEDS: IOHEXOL 350 MG/ML 100ML IJ ONE (20:21)
[2023-07-17] MEDS: POTASSIUM EFFERVESENT TAB 25 MEQ PO ONE (21:14)
[2023-07-17] MEDS: MIDODRINE HCL 10 MG TAB PO SCH (21:15)
[2023-07-17] MEDS: guaiFENesin-DM 100/10mg/5ml SYR PO PRN (23:05)
[2023-07-18] VITALS (91 sets, daily range): BP systolic 73–113; BP diastolic 45–83; PULSE 79–109; RESP 13–29; TEMP 97.9–99.6; O2SAT 85–100
[2023-07-18 05:37] LABS: Basophils # (auto) 0 10 ^3/uL (0-0.2); Basophils % (auto) 0.9 % (0.0-2.0); Eosinophils # (auto) 0.6 10 ^3/uL (0-0.8); Eosinophils % (auto) 10.6 % (0.0-7.0); Hematocrit 41.1 % (41.0-53.0); Hemoglobin 13.4 g/dL (13.5-17.5); Lymphocytes # (auto) 0.5 10 ^3/uL (0.4-5.4); Lymphocytes % (auto) 8.9 % (10.0-50.0); Mean Corpuscular Hemoglobin 32.5 pg (28.0-32.0); Mean Corpuscular Hgb Conc. 32.7 g/dL (32.0-36.0); Mean Corpuscular Volume 99.3 fL (80.0-100.0); Monocytes # (auto) 0.6 10 ^3/uL (0-1.3); Monocytes % (auto) 11.2 % (0.0-12.0); Neutrophils # (auto) 3.7 10 ^3/uL (1.6-8.6); Neutrophils % (auto) 68.4 % (37.0-80.0); Nucleated Red Blood Cells % 0.2 %; Red Blood Cells 4.14 10^6/uL (4.5-5.90); Red Cell Distribution Width 17.1 % (11.8-14.3); White Blood Cell 5.4 10^3/uL (4.4-10.8)
[2023-07-18 05:48] LABS: Chloride 103 mmol/L (98-107); Potassium 3.7 mmol/L (3.5-5.1); Sodium 140 mmol/L (136-145)
[2023-07-18 05:49] LABS: Anion Gap 6 (5-15); Carbon Dioxide 31 mmol/L (20-30)
[2023-07-18 05:50] LABS: Calcium 8.6 mg/dL (8.5-10.1)
[2023-07-18 05:54] LABS: Blood Urea Nitrogen 13 mg/dL (9-23); Glucose 109 mg/dL (74-106)
[2023-07-18] MEDS: SPIRONOLACTONE 25 MG TAB PO SCH (10:31)
[2023-07-19] VITALS (88 sets, daily range): BP systolic 75–109; BP diastolic 43–79; PULSE 75–103; RESP 10–26; TEMP 97.4–98.6; O2SAT 90–100
[2023-07-19 05:29] LABS: Basophils # (auto) 0.1 10 ^3/uL (0-0.2); Basophils % (auto) 1.4 % (0.0-2.0); Eosinophils # (auto) 0.5 10 ^3/uL (0-0.8); Eosinophils % (auto) 10.7 % (0.0-7.0); Hematocrit 37.8 % (41.0-53.0); Hemoglobin 12.3 g/dL (13.5-17.5); Lymphocytes # (auto) 0.5 10 ^3/uL (0.4-5.4); Lymphocytes % (auto) 10.8 % (10.0-50.0); Mean Corpuscular Hemoglobin 32.5 pg (28.0-32.0); Mean Corpuscular Hgb Conc. 32.6 g/dL (32.0-36.0); Mean Corpuscular Volume 99.5 fL (80.0-100.0); Monocytes # (auto) 0.5 10 ^3/uL (0-1.3); Monocytes % (auto) 10.4 % (0.0-12.0); Neutrophils # (auto) 3.1 10 ^3/uL (1.6-8.6); Neutrophils % (auto) 66.7 % (37.0-80.0); Nucleated Red Blood Cells % 0.2 %; Red Cell Distribution Width 17.7 % (11.8-14.3); White Blood Cell 4.7 10^3/uL (4.4-10.8)
[2023-07-19 05:33] LABS: Calcium 8.7 mg/dL (8.5-10.1); Chloride 101 mmol/L (98-107); Potassium 3.8 mmol/L (3.5-5.1); Sodium 137 mmol/L (136-145)
[2023-07-19 05:34] LABS: Anion Gap 5 (5-15); Carbon Dioxide 31 mmol/L (20-30)
[2023-07-19 05:39] LABS: BUN/Creatinine Ratio 12.5 (10.0-20.0); Blood Urea Nitrogen 13 mg/dL (9-23); Glucose 97 mg/dL (74-106)
[2023-07-19 05:44] LABS: Magnesium 1.6 mg/dL (1.6-2.6)
[2023-07-19] MEDS: BUMETANIDE 2.5mg/10ml (0.25 mg/ml) INJ IV SCH (10:17)
[2023-07-20] VITALS (64 sets, daily range): BP systolic 75–118; BP diastolic 41–79; PULSE 67–99; RESP 13–26; TEMP 97.8–98.9; O2SAT 88–100
[2023-07-20 06:40] LABS: Basophils # (auto) 0 10 ^3/uL (0-0.2); Basophils % (auto) 0.8 % (0.0-2.0); Eosinophils # (auto) 0.4 10 ^3/uL (0-0.8); Eosinophils % (auto) 9.3 % (0.0-7.0); Hematocrit 36.9 % (41.0-53.0); Hemoglobin 12.4 g/dL (13.5-17.5); Lymphocytes # (auto) 0.6 10 ^3/uL (0.4-5.4); Lymphocytes % (auto) 11.7 % (10.0-50.0); Mean Corpuscular Hemoglobin 32.7 pg (28.0-32.0); Mean Corpuscular Hgb Conc. 33.5 g/dL (32.0-36.0); Mean Corpuscular Volume 97.7 fL (80.0-100.0); Monocytes # (auto) 0.5 10 ^3/uL (0-1.3); Monocytes % (auto) 10.7 % (0.0-12.0); Neutrophils # (auto) 3.2 10 ^3/uL (1.6-8.6); Neutrophils % (auto) 67.5 % (37.0-80.0); Nucleated Red Blood Cells % 0.2 %; Red Blood Cells 3.78 10^6/uL (4.5-5.90); Red Cell Distribution Width 17.2 % (11.8-14.3); White Blood Cell 4.7 10^3/uL (4.4-10.8)
[2023-07-20 06:50] LABS: Anion Gap 7 (5-15); Carbon Dioxide 29 mmol/L (20-30); Chloride 100 mmol/L (98-107); Potassium 4.1 mmol/L (3.5-5.1); Sodium 136 mmol/L (136-145)
[2023-07-20 06:51] LABS: Calcium 8.8 mg/dL (8.5-10.1)
[2023-07-20 06:56] LABS: BUN/Creatinine Ratio 12.1 (10.0-20.0); Blood Urea Nitrogen 12 mg/dL (9-23); Glucose 94 mg/dL (74-106)
[2023-07-21] VITALS (72 sets, daily range): BP systolic 78–130; BP diastolic 38–93; PULSE 73–99; RESP 12–25; TEMP 97.8–99.1; O2SAT 90–99
[2023-07-21 05:29] LABS: INR 1.33 (0.9-1.15); Partial Thromboplastin Time 28.8 SEC (24.5-34.5); Prothrombin Time 13.8 sec (9.3-11.8)
[2023-07-21 05:33] LABS: Alanine Aminotransferase 15 U/L (7-40); Albumin 3.2 g/dL (3.2-4.8); Alkaline Phosphatase 205 U/L (46-116); Anion Gap 6 (5-15); Aspartate Aminotransferase 33 U/L (13-40); BUN/Creatinine Ratio 16.8 (10.0-20.0); Bilirubin, Total 2.7 mg/dL (0.2-1.0); Blood Urea Nitrogen 16 mg/dL (9-23); Calcium 8.5 mg/dL (8.7-10.4); Carbon Dioxide 30 mmol/L (20-30); Chloride 100 mmol/L (98-107); Glucose 102 mg/dL (74-106); Magnesium 1.6 mg/dL (1.6-2.6); Potassium 3.5 mmol/L (3.5-5.1); Sodium 136 mmol/L (136-145)
[2023-07-21 05:34] LABS: Total Protein 6.2 g/dL (5.7-8.2)
[2023-07-21] MEDS: NOREPINEPHRINE 8 MG/250ML KIT 250 ML IV SCH (14:59)
[2023-07-21] MEDS: ENOXAPARIN SOD 40 MG/0.4 ML SYRINGE SC SCH (15:12)
[2023-07-22] VITALS (78 sets, daily range): BP systolic 72–117; BP diastolic 34–89; PULSE 75–110; RESP 12–25; TEMP 97.8–99; O2SAT 85–99
[2023-07-22 05:13] LABS: Basophils # (auto) 0.1 10 ^3/uL (0-0.2); Basophils % (auto) 1.5 % (0.0-2.0); Eosinophils # (auto) 0.3 10 ^3/uL (0-0.8); Eosinophils % (auto) 5.4 % (0.0-7.0); Hematocrit 39.1 % (41.0-53.0); Hemoglobin 12.9 g/dL (13.5-17.5); Lymphocytes # (auto) 0.5 10 ^3/uL (0.4-5.4); Lymphocytes % (auto) 10.9 % (10.0-50.0); Mean Corpuscular Hgb Conc. 33.1 g/dL (32.0-36.0); Mean Corpuscular Volume 99.6 fL (80.0-100.0); Monocytes # (auto) 0.5 10 ^3/uL (0-1.3); Monocytes % (auto) 10.2 % (0.0-12.0); Neutrophils # (auto) 3.4 10 ^3/uL (1.6-8.6); Nucleated Red Blood Cells % 0.2 %; Red Blood Cells 3.93 10^6/uL (4.5-5.90); Red Cell Distribution Width 18.1 % (11.8-14.3); White Blood Cell 4.7 10^3/uL (4.4-10.8)
[2023-07-22 05:19] LABS: Chloride 101 mmol/L (98-107); Potassium 3.6 mmol/L (3.5-5.1); Sodium 133 mmol/L (136-145)
[2023-07-22 05:20] LABS: Anion Gap 7 (5-15); Calcium 8.7 mg/dL (8.7-10.4); Carbon Dioxide 25 mmol/L (20-30)
[2023-07-22 05:25] LABS: BUN/Creatinine Ratio 9.6 (10.0-20.0); Blood Urea Nitrogen 9 mg/dL (9-23); Glucose 95 mg/dL (74-106)
[2023-07-22 05:40] LABS: INR 1.48 (0.9-1.15); Partial Thromboplastin Time 25.9 SEC (24.5-34.5); Prothrombin Time 15.2 sec (9.3-11.8)
[2023-07-22] MEDS: LIDOCAINE 1% (LOCAL ANESTH.) PF 5ml SDV ID ONE (10:00)
[2023-07-22] MEDS: MAGNESIUM SULFATE 1GM/100ML 100 ML IV SCH (10:53)
[2023-07-22] MEDS: POTASSIUM CHL 20 Meq TABLET PO ONE (10:53)
[2023-07-22] MEDS: SODIUM CHLOR 0.9% PF (SALINE LOCK) 10ML VIAL/SYR IV SCH (22:45)
[2023-07-23] VITALS (96 sets, daily range): BP systolic 77–113; BP diastolic 49–84; PULSE 77–97; RESP 11–28; TEMP 97.7–98.6; O2SAT 88–99
[2023-07-23] MEDS: HYDROcodone-ACET 5/325MG TAB PO PRN (05:01)
[2023-07-23 05:49] LABS: Anion Gap 6 (5-15); Carbon Dioxide 28 mmol/L (20-30); Chloride 99 mmol/L (98-107); Potassium 3.8 mmol/L (3.5-5.1); Sodium 133 mmol/L (136-145)
[2023-07-23 05:51] LABS: Calcium 8.8 mg/dL (8.7-10.4)
[2023-07-23 05:55] LABS: Basophils # (auto) 0.1 10 ^3/uL (0-0.2); Basophils % (auto) 2.1 % (0.0-2.0); Blood Urea Nitrogen 12 mg/dL (9-23); Eosinophils # (auto) 0.2 10 ^3/uL (0-0.8); Eosinophils % (auto) 6.1 % (0.0-7.0); Glucose 93 mg/dL (74-106); Hematocrit 36.9 % (41.0-53.0); Hemoglobin 12.2 g/dL (13.5-17.5); Lymphocytes # (auto) 0.5 10 ^3/uL (0.4-5.4); Lymphocytes % (auto) 12.6 % (10.0-50.0); Mean Corpuscular Hemoglobin 32.4 pg (28.0-32.0); Mean Corpuscular Volume 98.3 fL (80.0-100.0); Monocytes # (auto) 0.5 10 ^3/uL (0-1.3); Monocytes % (auto) 12.6 % (0.0-12.0); Neutrophils # (auto) 2.7 10 ^3/uL (1.6-8.6); Neutrophils % (auto) 66.6 % (37.0-80.0); Nucleated Red Blood Cells % 0.4 %; Red Blood Cells 3.75 10^6/uL (4.5-5.90); Red Cell Distribution Width 17.4 % (11.8-14.3)
[2023-07-23] MEDS: ALBUMIN 5% 50 ML IV SCH (16:45)
[2023-07-23] MEDS: TEMAZEPAM 15 MG CAP PO ONE (21:13)
[2023-07-24] VITALS (96 sets, daily range): BP systolic 73–111; BP diastolic 34–80; PULSE 78–104; RESP 11–29; TEMP 97.6–98.8; O2SAT 80–100
[2023-07-24 05:14] LABS: Basophils # (auto) 0.1 10 ^3/uL (0-0.2); Basophils % (auto) 2.6 % (0.0-2.0); Eosinophils # (auto) 0.3 10 ^3/uL (0-0.8); Eosinophils % (auto) 7.4 % (0.0-7.0); Hematocrit 35.9 % (41.0-53.0); Hemoglobin 11.8 g/dL (13.5-17.5); Lymphocytes # (auto) 0.5 10 ^3/uL (0.4-5.4); Lymphocytes % (auto) 14.5 % (10.0-50.0); Mean Corpuscular Hemoglobin 32.2 pg (28.0-32.0); Mean Corpuscular Hgb Conc. 32.8 g/dL (32.0-36.0); Mean Corpuscular Volume 98.3 fL (80.0-100.0); Monocytes # (auto) 0.4 10 ^3/uL (0-1.3); Neutrophils # (auto) 2.3 10 ^3/uL (1.6-8.6); Neutrophils % (auto) 63.5 % (37.0-80.0); Nucleated Red Blood Cells % 0.3 %; Red Blood Cells 3.66 10^6/uL (4.5-5.90); Red Cell Distribution Width 17.6 % (11.8-14.3); White Blood Cell 3.6 10^3/uL (4.4-10.8)
[2023-07-24 05:28] LABS: INR 1.24 (0.9-1.15); Partial Thromboplastin Time 28.5 SEC (24.5-34.5); Prothrombin Time 12.9 sec (9.3-11.8)
[2023-07-24 05:33] LABS: Alanine Aminotransferase 11 U/L (7-40); Albumin 3.4 g/dL (3.2-4.8); Alkaline Phosphatase 199 U/L (46-116); Anion Gap 5 (5-15); Aspartate Aminotransferase 30 U/L (13-40); BUN/Creatinine Ratio 10.2 (10.0-20.0); Blood Urea Nitrogen 11 mg/dL (9-23); Calcium 9.2 mg/dL (8.5-10.1); Carbon Dioxide 28 mmol/L (20-30); Chloride 100 mmol/L (98-107); Glucose 90 mg/dL (74-106); Magnesium 1.9 mg/dL (1.6-2.6); Sodium 133 mmol/L (136-145)
[2023-07-24 05:34] LABS: Bilirubin, Total 1.9 mg/dL (0.2-1.0); Total Protein 6.4 g/dL (5.7-8.2)
[2023-07-24] MEDS: TEMAZEPAM 15 MG CAP PO PRN (21:55)
[2023-07-25] VITALS (96 sets, daily range): BP systolic 75–113; BP diastolic 20–78; PULSE 80–96; RESP 15–35; TEMP 97.6–98.6; O2SAT 84–100
[2023-07-25 10:04] LABS: Basophils # (auto) 0.1 10 ^3/uL (0-0.2); Basophils % (auto) 2.2 % (0.0-2.0); Eosinophils # (auto) 0.2 10 ^3/uL (0-0.8); Eosinophils % (auto) 5.6 % (0.0-7.0); Hematocrit 37.9 % (41.0-53.0); Hemoglobin 12.5 g/dL (13.5-17.5); Lymphocytes # (auto) 0.6 10 ^3/uL (0.4-5.4); Mean Corpuscular Hemoglobin 32.4 pg (28.0-32.0); Mean Corpuscular Hgb Conc. 32.9 g/dL (32.0-36.0); Mean Corpuscular Volume 98.7 fL (80.0-100.0); Monocytes # (auto) 0.4 10 ^3/uL (0-1.3); Monocytes % (auto) 11.5 % (0.0-12.0); Neutrophils # (auto) 2.5 10 ^3/uL (1.6-8.6); Neutrophils % (auto) 65.7 % (37.0-80.0); Nucleated Red Blood Cells % 0.2 %; Red Blood Cells 3.84 10^6/uL (4.5-5.90); Red Cell Distribution Width 17.6 % (11.8-14.3); White Blood Cell 3.8 10^3/uL (4.4-10.8)
[2023-07-25 10:24] LABS: Chloride 101 mmol/L (98-107); Potassium 4.5 mmol/L (3.5-5.1); Sodium 133 mmol/L (136-145)
[2023-07-25 10:25] LABS: Anion Gap 4 (5-15); Calcium 9.4 mg/dL (8.5-10.1); Carbon Dioxide 28 mmol/L (20-30)
[2023-07-25 10:30] LABS: BUN/Creatinine Ratio 15.2 (10.0-20.0); Blood Urea Nitrogen 16 mg/dL (9-23); Glucose 87 mg/dL (74-106)
[2023-07-26] VITALS (103 sets, daily range): BP systolic 57–107; BP diastolic 25–77; PULSE 5–112; RESP 16–36; TEMP 97.7–98.4; O2SAT 79–98
[2023-07-26 03:36] LABS: Basophils # (auto) 0.1 10 ^3/uL (0-0.2); Basophils % (auto) 1.9 % (0.0-2.0); Eosinophils # (auto) 0.3 10 ^3/uL (0-0.8); Eosinophils % (auto) 6.1 % (0.0-7.0); Hematocrit 36.8 % (41.0-53.0); Lymphocytes # (auto) 0.6 10 ^3/uL (0.4-5.4); Lymphocytes % (auto) 14.3 % (10.0-50.0); Mean Corpuscular Hemoglobin 32.2 pg (28.0-32.0); Mean Corpuscular Hgb Conc. 32.5 g/dL (32.0-36.0); Mean Corpuscular Volume 99.1 fL (80.0-100.0); Monocytes # (auto) 0.4 10 ^3/uL (0-1.3); Monocytes % (auto) 10.4 % (0.0-12.0); Neutrophils # (auto) 2.9 10 ^3/uL (1.6-8.6); Neutrophils % (auto) 67.3 % (37.0-80.0); Nucleated Red Blood Cells % 0.1 %; Red Blood Cells 3.72 10^6/uL (4.5-5.90); Red Cell Distribution Width 17.4 % (11.8-14.3); White Blood Cell 4.2 10^3/uL (4.4-10.8)
[2023-07-26 03:57] LABS: Albumin 3.3 g/dL (3.2-4.8); Alkaline Phosphatase 182 U/L (46-116); Anion Gap 6 (5-15); Aspartate Aminotransferase 26 U/L (13-40); BUN/Creatinine Ratio 12.2 (10.0-20.0); Bilirubin, Total 2.2 mg/dL (0.2-1.0); Blood Urea Nitrogen 14 mg/dL (9-23); Calcium 8.9 mg/dL (8.7-10.4); Carbon Dioxide 26 mmol/L (20-30); Chloride 99 mmol/L (98-107); Glucose 98 mg/dL (74-106); Potassium 4.2 mmol/L (3.5-5.1); Sodium 131 mmol/L (136-145); Total Protein 6.7 g/dL (5.7-8.2)
[2023-07-26 04:33] LABS: Alanine Aminotransferase 9 U/L (7-40)
[2023-07-26] MEDS ORDERED: ALBUMIN 5% 50 ML IV ONE (08:30)
[2023-07-26] MEDS: NOREPINEPHRINE 8 MG/250ML KIT 250 ML IV SCH (15:00)
[2023-07-26] MEDS: ALBUMIN 25% 100 ML IV ONE (19:34)
[2023-07-27] VITALS (97 sets, daily range): BP systolic 44–106; BP diastolic 19–77; PULSE 79–98; RESP 15–29; TEMP 97.9–98.2; O2SAT 89–97
[2023-07-27 04:20] LABS: Basophils # (auto) 0.1 10 ^3/uL (0-0.2); Basophils % (auto) 2.8 % (0.0-2.0); Eosinophils # (auto) 0.2 10 ^3/uL (0-0.8); Eosinophils % (auto) 4.9 % (0.0-7.0); Hematocrit 34.7 % (41.0-53.0); Hemoglobin 11.4 g/dL (13.5-17.5); Lymphocytes # (auto) 0.5 10 ^3/uL (0.4-5.4); Lymphocytes % (auto) 14.1 % (10.0-50.0); Mean Corpuscular Hemoglobin 32.4 pg (28.0-32.0); Mean Corpuscular Hgb Conc. 32.9 g/dL (32.0-36.0); Mean Corpuscular Volume 98.4 fL (80.0-100.0); Monocytes # (auto) 0.4 10 ^3/uL (0-1.3); Monocytes % (auto) 10.8 % (0.0-12.0); Neutrophils # (auto) 2.4 10 ^3/uL (1.6-8.6); Neutrophils % (auto) 67.4 % (37.0-80.0); Red Blood Cells 3.53 10^6/uL (4.5-5.90); Red Cell Distribution Width 17.2 % (11.8-14.3); White Blood Cell 3.5 10^3/uL (4.4-10.8)
[2023-07-27 04:43] LABS: Albumin 3.6 g/dL (3.2-4.8); Alkaline Phosphatase 181 U/L (46-116); Anion Gap 6 (5-15); Aspartate Aminotransferase 24 U/L (13-40); Calcium 9.5 mg/dL (8.7-10.4); Carbon Dioxide 26 mmol/L (20-30); Chloride 99 mmol/L (98-107); Glucose 94 mg/dL (74-106); Potassium 4.2 mmol/L (3.5-5.1); Sodium 131 mmol/L (136-145)
[2023-07-27 04:44] LABS: Bilirubin, Total 1.8 mg/dL (0.2-1.0); Total Protein 6.8 g/dL (5.7-8.2)
[2023-07-27 04:53] LABS: Alanine Aminotransferase < 9 U/L (7-40)
[2023-07-27 04:54] LABS: BUN/Creatinine Ratio 11.9 (10.0-20.0); Blood Urea Nitrogen 15 mg/dL (9-23)
[2023-07-27] MEDS: NOREPINEPHRINE 8 MG/250ML KIT 250 ML IV SCH (09:00)
[2023-07-27] MEDS: ALBUMIN 5% 50 ML IV ONE (10:00)
[2023-07-28] VITALS (69 sets, daily range): BP systolic 78–109; BP diastolic 48–79; PULSE 74–96; RESP 13–33; TEMP 97.7–98.4; O2SAT 90–100
[2023-07-29] VITALS (7 sets, daily range): BP systolic 86–117; BP diastolic 56–84; PULSE 42–91; RESP 18–20; TEMP 97.7–98.4; O2SAT 92–97
[2023-07-29 06:28] LABS: Basophils # (auto) 0.1 10 ^3/uL (0-0.2); Basophils % (auto) 1.5 % (0.0-2.0); Eosinophils # (auto) 0.2 10 ^3/uL (0-0.8); Eosinophils % (auto) 4.5 % (0.0-7.0); Hematocrit 36.8 % (41.0-53.0); Hemoglobin 12.4 g/dL (13.5-17.5); Lymphocytes # (auto) 0.6 10 ^3/uL (0.4-5.4); Lymphocytes % (auto) 13.5 % (10.0-50.0); Mean Corpuscular Hemoglobin 33.3 pg (28.0-32.0); Mean Corpuscular Hgb Conc. 33.7 g/dL (32.0-36.0); Mean Corpuscular Volume 98.8 fL (80.0-100.0); Monocytes # (auto) 0.5 10 ^3/uL (0-1.3); Monocytes % (auto) 10.6 % (0.0-12.0); Neutrophils # (auto) 3.1 10 ^3/uL (1.6-8.6); Neutrophils % (auto) 69.9 % (37.0-80.0); Nucleated Red Blood Cells % 0.1 %; Red Blood Cells 3.72 10^6/uL (4.5-5.90); White Blood Cell 4.4 10^3/uL (4.4-10.8)
[2023-07-29 06:42] LABS: Albumin 3.7 g/dL (3.2-4.8); Alkaline Phosphatase 201 U/L (46-116); Anion Gap 9 (5-15); Aspartate Aminotransferase 24 U/L (13-40); BUN/Creatinine Ratio 11.4 (10.0-20.0); Blood Urea Nitrogen 14 mg/dL (9-23); Calcium 9.6 mg/dL (8.7-10.4); Carbon Dioxide 22 mmol/L (20-30); Chloride 99 mmol/L (98-107); Glucose 87 mg/dL (74-106); Potassium 4.5 mmol/L (3.5-5.1); Sodium 130 mmol/L (136-145)
[2023-07-29 06:43] LABS: Bilirubin, Total 2.1 mg/dL (0.2-1.0); Total Protein 7.2 g/dL (5.7-8.2)
[2023-07-29 06:47] LABS: Alanine Aminotransferase 9 U/L (7-40)
[2023-07-30] VITALS: BP 88/66; PULSE 87; RESP 19; TEMP 97.6; O2SAT 95
[2023-07-30 06:00] VITALS: BP 85/63; PULSE 88; TEMP 97.2; O2SAT 95
[2023-07-30 07:30] VITALS: PULSE 85; RESP 15; O2SAT 95
[2023-07-30 09:00] VITALS: BP 93/71; PULSE 92; RESP 20; TEMP 97.3; O2SAT 95
[2023-07-30] MEDS ORDERED: ZOLP10TA PO (10:53)
[2023-07-30] MEDS ORDERED: BUME2TAB5 PO (10:53)
[2023-07-30] MEDS ORDERED: LACT10PA2 PO (10:53)
[2023-07-30] MEDS ORDERED: FURO1TAB31 PO (11:39)
[2023-07-30] MEDS ORDERED: LEV50T PO (11:39)
[2023-07-30] MEDS ORDERED: SILD30SU PO (11:39)
[2023-07-30] MEDS ORDERED: SPIR25TA PO (11:39)
[2023-07-30] MEDS ORDERED: MIDO10TA3 PO (11:39)
[2023-07-30 12:50] VITALS: BP 93/71; PULSE 85; RESP 18; TEMP 98.5; O2SAT 95
[2023-07-30 12:55] VITALS: BP 94/66; PULSE 89; RESP 20; TEMP 97.6; O2SAT 99
== END 2023-07-30 15:35 | disposition home or self-care (01) | DRG 280 ==
LOC: ER 11:54 → EDUNIT# 11:54 → EDBD 11:54 → TELE 15:37 → ICU CENTRL 07-15 00:44 → ICU WEST 07-24 06:24 → WEST WING 07-28 22:35
PROVIDERS: ADMIT Family Medicine; ATTEND Family Medicine
PROC: 0W9G3ZZ Drainage of Peritoneal Cavity, Percutaneous Approach (ICD-10-PCS; principal; 2023-07-16)
PROC: 02HV33Z Insertion of Infusion Device into Superior Vena Cava, Percutaneous Approach (ICD-10-PCS; 2023-07-22)
PROC: B548ZZA Ultrasonography of Superior Vena Cava, Guidance (ICD-10-PCS; 2023-07-22)
PROC: 0W9G3ZZ Drainage of Peritoneal Cavity, Percutaneous Approach (ICD-10-PCS; 2023-07-24)
PROC: 0W9G3ZZ Drainage of Peritoneal Cavity, Percutaneous Approach (ICD-10-PCS; 2023-07-29)
DX: K70.31 Alcoholic cirrhosis of liver with ascites (principal); K70.11 Alcoholic hepatitis with ascites; N17.0 Acute kidney failure with tubular necrosis; K76.7 Hepatorenal syndrome; R57.1 Hypovolemic shock; I31.39 Other pericardial effusion (noninflammatory); E87.1 Hypo-osmolality and hyponatremia; D68.9 Coagulation defect, unspecified; I50.33 Acute on chronic diastolic (congestive) heart failure; D69.6 Thrombocytopenia, unspecified; I11.0 Hypertensive heart disease with heart failure; K76.82 Hepatic encephalopathy; E87.5 Hyperkalemia; E03.9 Hypothyroidism, unspecified; F10.10 Alcohol abuse, uncomplicated; I27.20 Pulmonary hypertension, unspecified; K72.10 Chronic hepatic failure without coma; K76.6 Portal hypertension; D75.89 Other specified diseases of blood and blood-forming organs; I45.10 Unspecified right bundle-branch block; I36.1 Nonrheumatic tricuspid (valve) insufficiency; K92.1 Melena; R54 Age-related physical debility; Y90.9 Presence of alcohol in blood, level not specified; Z83.3 Family history of diabetes mellitus; Z88.0 Allergy status to penicillin; Z79.899 Other long term (current) drug therapy
CPT/HCPCS: 36415; 36569; 49083; 71045; 71275; 74176; 76705; 76775; 76942; 80048; 80053; 80061; 80307; 81001; 82140; 82570; 82728; 83036; 83540; 83550; 83735; 83880; 83930; 84132; 84156; 84300; 84443; 85025; 85610; 85730; 86850; 86900; 86901; 87081; 87086; 93005; 93306; 97116; 97163; 97530; G0378; P9047

== ENCOUNTER 2023-08-14 17:27 | Inpatient (IN) | payer MEDICAID ==
[~2023-08-14] VITALS: Ht 172.7 cm; Wt 74.6 kg
[~2023-08-14 17:27] MED LIST changes: +BUME2TAB5 PO; +LACT10PA2 PO; +LEV50T PO; +MIDO10TA3 PO; +SILD30SU PO; +ZOLP10TA PO
[2023-08-14] MEDS: KETOROLAC TROMETH 30 MG/ML 1ML VIAL IV ONE (18:56)
[2023-08-14 19:49] LABS: Basophils # (auto) 0.1 10 ^3/uL (0-0.2); Basophils % (auto) 1.2 % (0.0-2.0); Eosinophils # (auto) 0.1 10 ^3/uL (0-0.8); Eosinophils % (auto) 2.4 % (0.0-7.0); Hematocrit 42.4 % (41.0-53.0); Hemoglobin 13.5 g/dL (13.5-17.5); Lymphocytes # (auto) 0.7 10 ^3/uL (0.4-5.4); Lymphocytes % (auto) 13.9 % (10.0-50.0); Mean Corpuscular Hemoglobin 32.2 pg (28.0-32.0); Mean Corpuscular Hgb Conc. 31.8 g/dL (32.0-36.0); Mean Corpuscular Volume 101.5 fL (80.0-100.0); Monocytes # (auto) 0.4 10 ^3/uL (0-1.3); Monocytes % (auto) 8.9 % (0.0-12.0); Neutrophils # (auto) 3.7 10 ^3/uL (1.6-8.6); Neutrophils % (auto) 73.6 % (37.0-80.0); Nucleated Red Blood Cells % 0.5 %; Red Blood Cells 4.17 10^6/uL (4.5-5.90); Red Cell Distribution Width 18.5 % (11.8-14.3)
[2023-08-14 20:08] LABS: Alanine Aminotransferase 17 U/L (7-40); Albumin 4.1 g/dL (3.2-4.8); Alkaline Phosphatase 303 U/L (46-116); Anion Gap 14 (5-15); BUN/Creatinine Ratio 8.2 (10.0-20.0); Blood Urea Nitrogen 31 mg/dL (9-23); Calcium 9.7 mg/dL (8.5-10.1); Carbon Dioxide 15 mmol/L (20-30); Chloride 99 mmol/L (98-107); Glucose 92 mg/dL (74-106); Potassium 5.1 mmol/L (3.5-5.1); Sodium 128 mmol/L (136-145)
[2023-08-14 20:09] LABS: Aspartate Aminotransferase 35 U/L (13-40); Bilirubin, Total 2.2 mg/dL (0.2-1.0)
[2023-08-14 20:11] LABS: INR 1.23 (0.9-1.15); Partial Thromboplastin Time 28.2 SEC (24.5-34.5); Prothrombin Time 12.8 sec (9.3-11.8)
[2023-08-14 22:00] VITALS: PULSE 83; RESP 24; O2SAT 88
[2023-08-14] MEDS: HYDROcodone-ACET 10/325MG TAB PO ONE (22:18)
[2023-08-14] MEDS: ALBUMIN 5% 250 ML IV ONE (23:20)
[2023-08-15] MEDS: ALBUMIN 5% 250 ML IV ONE ×2 (00:54→01:09)
[2023-08-15] MEDS: ONDANSETRON HCL 4 MG/2 ML VIAL IV ONE (01:30)
[2023-08-15] MEDS: MORPHINE SULFATE 4 MG/ML SYR/VIAL IV ONE (01:30)
[2023-08-15] MEDS: NOREPINEPHRINE 8 MG/250ML KIT 250 ML IV ONE (01:42)
[2023-08-15] MEDS: NOREPINEPHRINE 8 MG/250ML KIT 250 ML IV SCH (01:43)
[2023-08-15] MEDS ORDERED: ONDANSETRON HCL 4 MG/2 ML VIAL IV PRN (02:30)
[2023-08-15] MEDS ORDERED: NITROGLYCERIN 0.4 MG SL TAB SL PRN (02:30)
[2023-08-15] MEDS ORDERED: MORPHINE SULFATE INJ 2 MG/ml SYRG IV PRN (02:30)
[2023-08-15] MEDS: ALBUMIN 25% 50 ML IV SCH (03:36)
[2023-08-15] MEDS: MIDODRINE HCL 10 MG TAB PO SCH (06:14)
[2023-08-15] MEDS: LEVOTHYROXINE SODIUM 50 MCG TAB PO SCH (06:14)
[2023-08-15 07:30] VITALS: PULSE 81; RESP 17; O2SAT 93
[2023-08-15 11:00] LABS: Alanine Aminotransferase 17 U/L (7-40); Albumin 4.1 g/dL (3.2-4.8); Alkaline Phosphatase 253 U/L (46-116); Anion Gap 17 (5-15); Aspartate Aminotransferase 23 U/L (13-40); BUN/Creatinine Ratio 8.6 (10.0-20.0); Bilirubin, Total 2.4 mg/dL (0.2-1.0); Blood Urea Nitrogen 33 mg/dL (9-23); Calcium 9.6 mg/dL (8.5-10.1); Carbon Dioxide 14 mmol/L (20-30); Chloride 100 mmol/L (98-107); Glucose 95 mg/dL (74-106); Potassium 5.3 mmol/L (3.5-5.1); Sodium 131 mmol/L (136-145); Total Protein 7.6 g/dL (5.7-8.2)
[2023-08-15] MEDS: SODIUM BICARB 50mEq/50ml Vial 150 ML in D5W 5% 1,000 ML IV ONE (16:48)
[2023-08-15 20:11] VITALS: PULSE 87; RESP 19; O2SAT 92
[2023-08-16 03:46] LABS: Basophils # (auto) 0.1 10 ^3/uL (0-0.2); Eosinophils # (auto) 0.2 10 ^3/uL (0-0.8); Eosinophils % (auto) 2.6 % (0.0-7.0); Hematocrit 38.4 % (41.0-53.0); Hemoglobin 12.8 g/dL (13.5-17.5); Lymphocytes # (auto) 0.7 10 ^3/uL (0.4-5.4); Lymphocytes % (auto) 11.7 % (10.0-50.0); Mean Corpuscular Hemoglobin 33.1 pg (28.0-32.0); Mean Corpuscular Hgb Conc. 33.5 g/dL (32.0-36.0); Mean Corpuscular Volume 98.9 fL (80.0-100.0); Monocytes # (auto) 0.6 10 ^3/uL (0-1.3); Monocytes % (auto) 9.7 % (0.0-12.0); Neutrophils # (auto) 4.4 10 ^3/uL (1.6-8.6); Nucleated Red Blood Cells % 0.3 %; Red Blood Cells 3.88 10^6/uL (4.5-5.90); Red Cell Distribution Width 18.4 % (11.8-14.3); White Blood Cell 5.9 10^3/uL (4.4-10.8)
[2023-08-16 04:01] LABS: Alanine Aminotransferase 11 U/L (7-40); Albumin 3.6 g/dL (3.2-4.8); Alkaline Phosphatase 209 U/L (46-116); Anion Gap 10 (5-15); Aspartate Aminotransferase 16 U/L (13-40); BUN/Creatinine Ratio 10.9 (10.0-20.0); Blood Urea Nitrogen 36 mg/dL (9-23); Carbon Dioxide 20 mmol/L (20-30); Chloride 100 mmol/L (98-107); Glucose 106 mg/dL (74-106); Potassium 4.7 mmol/L (3.5-5.1); Sodium 130 mmol/L (136-145)
[2023-08-16 04:02] LABS: Bilirubin, Total 2.2 mg/dL (0.2-1.0); Total Protein 6.3 g/dL (5.7-8.2)
[2023-08-16 04:30] VITALS: PULSE 87; RESP 19; O2SAT 92
[2023-08-16 07:30] VITALS: PULSE 84; RESP 19; O2SAT 94
[2023-08-16 19:30] VITALS: PULSE 95; RESP 19; O2SAT 94
[2023-08-16] MEDS: LACTULOSE 20Gm/30ML SOLN PO ONE (20:39)
[2023-08-16] MEDS: PANTOPRAZOLE 40 MG TAB PO ONE (20:39)
[2023-08-16] MEDS: ALBUMIN 25% 50 ML IV SCH (22:31)
[2023-08-16] MEDS: OCTREOTIDE ACETATE 100 MCG/ML VL SUBCUT SCH (22:32)
[2023-08-17 05:39] LABS: Chloride 102 mmol/L (98-107); Potassium 5.2 mmol/L (3.5-5.1); Sodium 130 mmol/L (136-145)
[2023-08-17 05:40] LABS: Anion Gap 6 (5-15); Calcium 9.4 mg/dL (8.5-10.1); Carbon Dioxide 22 mmol/L (20-30)
[2023-08-17 05:45] LABS: Blood Urea Nitrogen 36 mg/dL (9-23); Glucose 95 mg/dL (74-106)
[2023-08-17 05:46] LABS: Magnesium 2.3 mg/dL (1.6-2.6)
[2023-08-17 06:49] LABS: Urine Bacteria None Seen /hpf (None Seen)
[2023-08-17] MEDS: PANTOPRAZOLE 40 MG TAB PO SCH (07:00)
[2023-08-17 07:12] LABS: Protein, Urine 34.1 mg/dL (0.0-11.9)
[2023-08-17 07:14] LABS: Creatinine, Urine 73.95 mg/dL (30.0-125.0); Urine Protein/Creatinine Ratio 0.46
[2023-08-17 07:34] LABS: Urine Blood Negative /uL (Negative); Urine Clarity Clear (Clear); Urine Color Yellow (Yellow); Urine Mucus FEW (None Seen); Urine Protein, UAD TRACE (Negative); Urine Specific Gravity 1.013 (1.001-1.035); Urine Urobilinogen Normal (Negative); Urine WBC 15 /hpf (0 - 3); Urine pH 5.5 (5.0-9.0)
[2023-08-17 08:00] VITALS: PULSE 83; RESP 18; O2SAT 92
[2023-08-17] MEDS: LACTULOSE 20Gm/30ML SOLN PO SCH (10:18)
[2023-08-17] MEDS: FUROSEMIDE 40 MG/4 ML VIAL IV ONE (17:29)
[2023-08-17 19:30] VITALS: PULSE 87; RESP 23; O2SAT 94
[2023-08-18] MEDS: FUROSEMIDE 40 MG/4 ML VIAL IV SCH (10:42)
[2023-08-18 11:14] VITALS: PULSE 88; RESP 21; O2SAT 93
[2023-08-18] MEDS: cefTRIAXone 1GM/50ML D5W 50 ML IV ONE (14:15)
[2023-08-18 18:19] LABS: Alanine Aminotransferase 10 U/L (7-40); Albumin 3.7 g/dL (3.2-4.8); Alkaline Phosphatase 181 U/L (46-116); Anion Gap 6 (5-15); Aspartate Aminotransferase 16 U/L (13-40); BUN/Creatinine Ratio 15.1 (10.0-20.0); Blood Urea Nitrogen 31 mg/dL (9-23); Calcium 9.3 mg/dL (8.5-10.1); Carbon Dioxide 24 mmol/L (20-30); Chloride 102 mmol/L (98-107); Glucose 70 mg/dL (74-106); Potassium 4.6 mmol/L (3.5-5.1); Sodium 132 mmol/L (136-145); Total Protein 6.5 g/dL (5.7-8.2)
[2023-08-18 19:35] VITALS: PULSE 86; RESP 19; O2SAT 96
[2023-08-19 06:10] LABS: Anion Gap 11 (5-15); Carbon Dioxide 21 mmol/L (20-30); Chloride 101 mmol/L (98-107); Potassium 4.7 mmol/L (3.5-5.1); Sodium 133 mmol/L (136-145)
[2023-08-19 06:11] LABS: Calcium 9.4 mg/dL (8.7-10.4)
[2023-08-19 06:16] LABS: BUN/Creatinine Ratio 15.2 (10.0-20.0); Blood Urea Nitrogen 32 mg/dL (9-23); Glucose 100 mg/dL (74-106)
[2023-08-19 07:19] VITALS: PULSE 86; RESP 16; O2SAT 95
[2023-08-19] MEDS: cefTRIAXone 1GM/50ML D5W 50 ML IV SCH (09:04)
[2023-08-19 20:00] VITALS: PULSE 84; RESP 21; O2SAT 95
[2023-08-20 06:27] LABS: Basophils # (auto) 0.1 10 ^3/uL (0-0.2); Eosinophils # (auto) 0.2 10 ^3/uL (0-0.8); Eosinophils % (auto) 3.7 % (0.0-7.0); Hemoglobin 13.1 g/dL (13.5-17.5); Lymphocytes # (auto) 0.6 10 ^3/uL (0.4-5.4); Lymphocytes % (auto) 12.4 % (10.0-50.0); Mean Corpuscular Hemoglobin 32.8 pg (28.0-32.0); Mean Corpuscular Hgb Conc. 33.6 g/dL (32.0-36.0); Mean Corpuscular Volume 97.4 fL (80.0-100.0); Monocytes # (auto) 0.5 10 ^3/uL (0-1.3); Monocytes % (auto) 9.9 % (0.0-12.0); Neutrophils # (auto) 3.6 10 ^3/uL (1.6-8.6); Nucleated Red Blood Cells % 0.6 %; Red Cell Distribution Width 18.3 % (11.8-14.3); White Blood Cell 4.9 10^3/uL (4.4-10.8)
[2023-08-20 06:38] LABS: Alanine Aminotransferase 11 U/L (7-40); Alkaline Phosphatase 181 U/L (46-116); Anion Gap 11 (5-15); BUN/Creatinine Ratio 16.1 (10.0-20.0); Blood Urea Nitrogen 31 mg/dL (9-23); Calcium 9.3 mg/dL (8.7-10.4); Carbon Dioxide 23 mmol/L (20-30); Chloride 100 mmol/L (98-107); Glucose 95 mg/dL (74-106); Potassium 4.6 mmol/L (3.5-5.1); Sodium 134 mmol/L (136-145)
[2023-08-20 06:39] LABS: Albumin 3.7 g/dL (3.2-4.8); Aspartate Aminotransferase 28 U/L (13-40); Total Protein 6.7 g/dL (5.7-8.2)
[2023-08-20 07:35] VITALS: PULSE 88; RESP 17; O2SAT 95
[2023-08-20] MEDS: cefTRIAXone 1GM/50ML D5W 50 ML IV ONE (09:07)
[2023-08-20] MEDS: FUROSEMIDE 40 MG/4 ML VIAL ONE (09:39)
[2023-08-20 19:30] VITALS: PULSE 98; RESP 20; O2SAT 92
[2023-08-20] MEDS: NOREPINEPHRINE 8 MG/250ML KIT 250 ML IV ONE (20:22)
[2023-08-21 06:41] LABS: INR 1.29 (0.9-1.15); Partial Thromboplastin Time 29.3 SEC (24.5-34.5); Prothrombin Time 13.4 sec (9.3-11.8)
[2023-08-21 06:49] LABS: Alanine Aminotransferase 10 U/L (7-40); Albumin 3.4 g/dL (3.2-4.8); Alkaline Phosphatase 169 U/L (46-116); Anion Gap 10 (5-15); Aspartate Aminotransferase 19 U/L (13-40); BUN/Creatinine Ratio 17.6 (10.0-20.0); Bilirubin, Total 1.6 mg/dL (0.2-1.0); Blood Urea Nitrogen 30 mg/dL (9-23); Calcium 9.2 mg/dL (8.7-10.4); Carbon Dioxide 24 mmol/L (20-30); Chloride 101 mmol/L (98-107); Glucose 108 mg/dL (74-106); Potassium 3.8 mmol/L (3.5-5.1); Sodium 135 mmol/L (136-145); Total Protein 6.2 g/dL (5.7-8.2)
[2023-08-21 07:11] LABS: Basophils # (auto) 0 10 ^3/uL (0-0.2); Basophils % (auto) 1.1 % (0.0-2.0); Eosinophils # (auto) 0.1 10 ^3/uL (0-0.8); Eosinophils % (auto) 3.7 % (0.0-7.0); Hematocrit 37.8 % (41.0-53.0); Hemoglobin 12.2 g/dL (13.5-17.5); Lymphocytes # (auto) 0.5 10 ^3/uL (0.4-5.4); Mean Corpuscular Hgb Conc. 32.3 g/dL (32.0-36.0); Mean Corpuscular Volume 99.3 fL (80.0-100.0); Monocytes # (auto) 0.3 10 ^3/uL (0-1.3); Monocytes % (auto) 11.6 % (0.0-12.0); Neutrophils % (auto) 67.6 % (37.0-80.0); Nucleated Red Blood Cells % 0.3 %; Red Blood Cells 3.81 10^6/uL (4.5-5.90); Red Cell Distribution Width 18.7 % (11.8-14.3); White Blood Cell 2.9 10^3/uL (4.4-10.8)
[2023-08-21 07:30] VITALS: PULSE 93; RESP 13; O2SAT 90
[2023-08-21 08:05] LABS: Large Platelets FEW; Platelet Estimate Decreased
[2023-08-21 17:35] VITALS: BP 90/70; PULSE 95; RESP 18; TEMP 97.5; O2SAT 95
[2023-08-21 17:48] VITALS: PULSE 96; RESP 15; O2SAT 95
[2023-08-21 20:00] VITALS: PULSE 100; PULSE 101; RESP 19; O2SAT 95
[2023-08-21 21:00] VITALS: BP 91/65; PULSE 101; RESP 19; TEMP 97.9; O2SAT 95
[2023-08-22] VITALS (8 sets, daily range): BP systolic 78–121; BP diastolic 50–96; PULSE 57–103; RESP 16–20; TEMP 97.8–98.4; O2SAT 92–97
[2023-08-22 06:11] LABS: Anion Gap 11 (5-15); Calcium 9.7 mg/dL (8.7-10.4); Carbon Dioxide 22 mmol/L (20-30); Chloride 99 mmol/L (98-107); Potassium 4.3 mmol/L (3.5-5.1); Sodium 132 mmol/L (136-145)
[2023-08-22 06:16] LABS: Glucose 82 mg/dL (74-106)
[2023-08-22 06:17] LABS: BUN/Creatinine Ratio 16.6 (10.0-20.0); Blood Urea Nitrogen 26 mg/dL (9-23)
[2023-08-22] MEDS: ALBUMIN 25% 100 ML IV ONE (12:12)
[2023-08-22 14:12] LABS: Body Fluid Polymorphonuclear 10 % (0-25); Body Fluid Red Blood Cells 3400 CUMM (0-2000); Body Fluid White Blood Cells 15 CUMM (0-200)
[2023-08-23] VITALS (7 sets, daily range): BP systolic 84–101; BP diastolic 60–73; PULSE 85–99; RESP 16–18; TEMP 36.7; O2SAT 92–97
[2023-08-23 06:33] LABS: Anion Gap 9 (5-15); Carbon Dioxide 21 mmol/L (20-30); Chloride 99 mmol/L (98-107); Potassium 4.4 mmol/L (3.5-5.1); Sodium 129 mmol/L (136-145)
[2023-08-23 06:34] LABS: Calcium 9.6 mg/dL (8.5-10.1)
[2023-08-23 06:39] LABS: BUN/Creatinine Ratio 18.8 (10.0-20.0); Blood Urea Nitrogen 32 mg/dL (9-23); Glucose 93 mg/dL (74-106)
[2023-08-23 12:06] LABS: Protein, Body Fluid 3.8 g/dL (.)
[2023-08-23] MEDS ORDERED: OCTREOTIDE ACETATE 100 MCG/ML VL SUBCUT SCH (14:00)
[2023-08-23] MEDS ORDERED: MID10T PO (14:24)
[2023-08-23] MEDS ORDERED: FURO1TAB31 PO (14:24)
== END 2023-08-23 15:50 | disposition home or self-care (01) | DRG 280 ==
LOC: EDBD 17:27 → ER 17:44 → TELE 08-15 02:27 → TELE-CENTR 08-21 17:25
PROVIDERS: ADMIT Internal Medicine; ATTEND Internal Medicine
PROC: 0W9G3ZZ Drainage of Peritoneal Cavity, Percutaneous Approach (ICD-10-PCS; principal; 2023-08-15)
PROC: 0W9G3ZZ Drainage of Peritoneal Cavity, Percutaneous Approach (ICD-10-PCS; 2023-08-17)
PROC: 06HY33Z Insertion of Infusion Device into Lower Vein, Percutaneous Approach (ICD-10-PCS; 2023-08-19)
PROC: 0W993ZZ Drainage of Right Pleural Cavity, Percutaneous Approach (ICD-10-PCS; 2023-08-22)
DX: K70.31 Alcoholic cirrhosis of liver with ascites (principal); N17.0 Acute kidney failure with tubular necrosis; J96.00 Acute respiratory failure, unspecified whether with hypoxia or hypercapnia; K76.7 Hepatorenal syndrome; I13.0 Hypertensive heart and chronic kidney disease with heart failure and stage 1 through stage 4 chronic kidney disease, or unspecified chronic kidney disease; I95.9 Hypotension, unspecified; E87.20 Acidosis, unspecified; D68.4 Acquired coagulation factor deficiency; I50.9 Heart failure, unspecified; E87.1 Hypo-osmolality and hyponatremia; N18.9 Chronic kidney disease, unspecified; E87.5 Hyperkalemia; E03.9 Hypothyroidism, unspecified; F10.10 Alcohol abuse, uncomplicated; D69.59 Other secondary thrombocytopenia; Y90.9 Presence of alcohol in blood, level not specified; J91.8 Pleural effusion in other conditions classified elsewhere; Z87.891 Personal history of nicotine dependence; Z88.0 Allergy status to penicillin; Z79.899 Other long term (current) drug therapy; Z83.3 Family history of diabetes mellitus
CPT/HCPCS: 32555; 36415; 49083; 74018; 76700; 76705; 76942; 80048; 80053; 81001; 82105; 82140; 82570; 83735; 83935; 83986; 84156; 84300; 84439; 85025; 85610; 85730; 87070; 87205; 89051; 93005; 96365; 96375; G0378; J1885; P9047

== ENCOUNTER 2023-08-27 19:05 | Inpatient (IN) | payer MEDICAID ==
[~2023-08-27] VITALS: Ht 170.2 cm; Wt 77.3 kg
[2023-08-27] MEDS: fentaNYL Drip 2500mCg/250mlNS 250 ML IV SCH
[~2023-08-27 19:05] MED LIST changes: -BUME2TAB5 PO; -LEV50T PO; +LEVO-848 PO; -MIDO10TA3 PO; -SILD20TA PO
[2023-08-27] MEDS: SPIRONOLACTONE 25 MG TAB PO ONE (19:45)
[2023-08-27] MEDS: MORPHINE SULFATE 4 MG/ML SYR/VIAL IV ONE (19:45)
[2023-08-27] MEDS: ONDANSETRON HCL 4 MG/2 ML VIAL IV ONE (19:45)
[2023-08-27] MEDS: fentaNYL CITRATE 100 MCG/2 ML VL ONE (20:03)
[2023-08-27 20:05] LABS: Basophils # (auto) 0 10 ^3/uL (0-0.2); Basophils % (auto) 0.7 % (0.0-2.0); Eosinophils # (auto) 0 10 ^3/uL (0-0.8); Eosinophils % (auto) 0.5 % (0.0-7.0); Lymphocytes # (auto) 0.7 10 ^3/uL (0.4-5.4); Red Blood Cells 4.07 10^6/uL (4.5-5.90)
[2023-08-27 20:07] LABS: Hematocrit 41.4 % (41.0-53.0); Hemoglobin 13.3 g/dL (13.5-17.5); Lymphocytes % (auto) 11.7 % (10.0-50.0); Mean Corpuscular Hemoglobin 32.6 pg (28.0-32.0); Mean Corpuscular Hgb Conc. 32.1 g/dL (32.0-36.0); Mean Corpuscular Volume 101.8 fL (80.0-100.0); Monocytes # (auto) 0.6 10 ^3/uL (0-1.3); Monocytes % (auto) 10.7 % (0.0-12.0); Neutrophils # (auto) 4.4 10 ^3/uL (1.6-8.6); Neutrophils % (auto) 76.4 % (37.0-80.0); Nucleated Red Blood Cells % 1.2 %; Red Cell Distribution Width 19.5 % (11.8-14.3); White Blood Cell 5.7 10^3/uL (4.4-10.8)
[2023-08-27] MEDS: MIDAZOLAM DRIP 50 mg/50mL 50 ML IV ONE (20:08)
[2023-08-27 20:10] VITALS: PULSE 81; RESP 17; O2SAT 86
[2023-08-27] MEDS: MIDAZOLAM DRIP 50 mg/50mL 50 ML IV SCH (20:10)
[2023-08-27] MEDS: ETOMIDATE (2MG/ML) 20ML VIAL IV ONE (20:14)
[2023-08-27] MEDS: SUCCINYLCHOLINE CHLORIDE 20 MG/ML 10ML VIAL IV ONE (20:14)
[2023-08-27 20:25] LABS: Alanine Aminotransferase 137 U/L (7-40); Alkaline Phosphatase 259 U/L (46-116); Anion Gap 21 (5-15); Aspartate Aminotransferase 222 U/L (13-40); BUN/Creatinine Ratio 14.5 (10.0-20.0); Calcium 10.5 mg/dL (8.5-10.1); Chloride 96 mmol/L (98-107); Glucose 50 mg/dL (74-106); Sodium 127 mmol/L (136-145)
[2023-08-27 20:26] LABS: Albumin 4.2 g/dL (3.2-4.8); Bilirubin, Total 3.9 mg/dL (0.2-1.0); Total Protein 7.4 g/dL (5.7-8.2)
[2023-08-27 20:30] VITALS: BP 65/25; PULSE 48; RESP 28; O2SAT 85
[2023-08-27 20:36] LABS: Carbon Dioxide 10 mmol/L (20-30)
[2023-08-27 20:38] LABS: Blood Urea Nitrogen 85 mg/dL (9-23); Potassium 6.9 mmol/L (3.5-5.1)
[2023-08-27] MEDS: PROPOFOL 100 ML IV ONE (20:39)
[2023-08-27] MEDS: PROPOFOL 100 ML IV SCH (20:40)
[2023-08-27] MEDS: SODIUM BICARB 8.4% 50Meq/50ml SYR INJ ONE ×2 (20:50→21:33)
[2023-08-27] MEDS: NOREPINEPHRINE 8 MG/250ML KIT 250 ML IV ONE (20:58)
[2023-08-27] MEDS: NOREPINEPHRINE 8 MG/250ML KIT 250 ML IV SCH (21:00)
[2023-08-27] MEDS: SODIUM BICARB 8.4% 50Meq/50ml SYR Vial IV ONE ×4 (21:00→21:30)
[2023-08-27] MEDS: DEXTROSE 10% 1,000 ML IV ONE (21:12)
[2023-08-27] MEDS: DOPamine 1600MCG/ML D5W 250 ML IV ONE ×2 (21:14→21:15)
[2023-08-27] MEDS: InsuLIN REG 1unit/0.01ml Soln (100units/ml) IV ONE ×2 (21:15→21:30)
[2023-08-27] MEDS: ALBUMIN 25% 100 ML IV ONE (21:15)
[2023-08-27] MEDS: SODIUM ZIRCONIUM CYCL 10 GM PAK PO ONE (21:15)
[2023-08-27] MEDS ORDERED: ALBUTEROL SULF 2.5 MG/0.5ML(0.5%) NEB SOLN NEB ONE (21:15)
[2023-08-27] MEDS: DEXTROSE (50%) 50ML SYRG IV ONE ×2 (21:15→21:30)
[2023-08-27] MEDS: CALCIUM GLUC 1,000mg/50ml-NS 50 ML IV ONE (21:30)
[2023-08-27] MEDS ORDERED: NITROGLYCERIN 0.4 MG SL TAB SL PRN (21:45)
[2023-08-27] MEDS ORDERED: MORPHINE SULFATE INJ 2 MG/ml SYRG IV PRN (21:45)
[2023-08-27] MEDS ORDERED: ONDANSETRON HCL 4 MG/2 ML VIAL IV PRN (21:45)
[2023-08-27 22:11] VITALS: BP 84/25; PULSE 96; RESP 25; O2SAT 94
[2023-08-27 22:25] LABS: INR 2.3 (0.9-1.15); Partial Thromboplastin Time 43.7 SEC (24.5-34.5); Prothrombin Time 22.9 sec (9.3-11.8)
[2023-08-27] MEDS: ALBUTEROL SULF 2.5 MG/0.5ML(0.5%) NEB SOLN NEB ONE (22:39)
[2023-08-27] MEDS: FUROSEMIDE 40 MG/4 ML VIAL IV ONE (22:43)
[2023-08-27 23:07] VITALS: BP 73/23; PULSE 154; RESP 24; TEMP 98.6; O2SAT 100
[2023-08-28] VITALS (13 sets, daily range): BP systolic 37–88; BP diastolic 17–58; PULSE 47–122; RESP 14–27; TEMP 98.2; O2SAT 62–96
[2023-08-28] MEDS: ALBUMIN 25% 100 ML IV SCH
[2023-08-28] MEDS: VASOPRESSIN 20 UNITS in SODIUM CHL 0.9% 99 ML IV SCH ×2 (00:30→10:21)
[2023-08-28] MEDS: VASOPRESSIN 20 UNIT/ML ONE ×2 (00:54→11:25)
[2023-08-28] MEDS: SODIUM BICARB 8.4% 50Meq/50ml SYR Vial IV ONE ×3 (01:07→07:41)
[2023-08-28 03:06] LABS: Base Excess -11.3 mmol/L (-2.0-2.0)
[2023-08-28 03:42] LABS: Basophils # (auto) 0 10 ^3/uL (0-0.2); Basophils % (auto) 0.5 % (0.0-2.0); Eosinophils # (auto) 0 10 ^3/uL (0-0.8); Hematocrit 37.8 % (41.0-53.0); Hemoglobin 12.1 g/dL (13.5-17.5); Lymphocytes # (auto) 0.3 10 ^3/uL (0.4-5.4); Lymphocytes % (auto) 4.1 % (10.0-50.0); Mean Corpuscular Hemoglobin 32.2 pg (28.0-32.0); Mean Corpuscular Volume 100.7 fL (80.0-100.0); Monocytes # (auto) 0.9 10 ^3/uL (0-1.3); Monocytes % (auto) 10.2 % (0.0-12.0); Neutrophils # (auto) 7.2 10 ^3/uL (1.6-8.6); Neutrophils % (auto) 85.2 % (37.0-80.0); Nucleated Red Blood Cells % 1.1 %; Red Blood Cells 3.75 10^6/uL (4.5-5.90); Red Cell Distribution Width 19.2 % (11.8-14.3); White Blood Cell 8.5 10^3/uL (4.4-10.8)
[2023-08-28 03:54] LABS: Alanine Aminotransferase 134 U/L (7-40); Albumin 4.5 g/dL (3.2-4.8); Alkaline Phosphatase 196 U/L (46-116); Anion Gap 23 (5-15); Aspartate Aminotransferase 249 U/L (13-40); BUN/Creatinine Ratio 11.8 (10.0-20.0); Bilirubin, Total 3.8 mg/dL (0.2-1.0); Calcium 10.1 mg/dL (8.7-10.4); Carbon Dioxide 14 mmol/L (20-30); Chloride 95 mmol/L (98-107); Glucose 90 mg/dL (74-106); Potassium 5.1 mmol/L (3.5-5.1)
[2023-08-28 03:55] LABS: Blood Urea Nitrogen 71 mg/dL (9-23); Sodium 132 mmol/L (136-145); Total Protein 7.6 g/dL (5.7-8.2)
[2023-08-28] MEDS: PHENYLEPHRINE IV 250 ML IV SCH (05:00)
[2023-08-28] MEDS: FUROSEMIDE 20 MG/2 ML VIAL IV SCH (06:00)
[2023-08-28] MEDS: SODIUM BICARB 50mEq/50ml Vial 100 ML in SOD CHL 0.45% 1,000 ML IV SCH (06:15)
[2023-08-28 06:44] LABS: Base Excess -16.3 mmol/L (-2.0-2.0)
[2023-08-28] MEDS: EPINEPHrine HCL 250 ML IV ONE (07:00)
[2023-08-28] MEDS: SODIUM BICARB 8.4% 50Meq/50ml SYR INJ ONE (07:00)
[2023-08-28] MEDS ORDERED: PHENTOLAMINE MESYLATE 5 MG INJ VIAL SUBCUT ONE (07:30)
[2023-08-28] MEDS: EPINEPHrine HCL 250 ML IV SCH (07:42)
[2023-08-28] MEDS: PHENTOLAMINE MESYLATE 5 MG INJ VIAL SUBCUT ONE (07:58)
[2023-08-28] MEDS: SODIUM ZIRCONIUM CYCL 10 GM PAK PO ONE (08:38)
[2023-08-28] MEDS ORDERED: VASOPRESSIN 40 UNITS in D5W 5% 198 ML IV SCH (09:00)
[2023-08-28] MEDS: DOBUTamine 1000MCG/ML 250 ML IV SCH (09:09)
[2023-08-28] MEDS: FUROSEMIDE 20 MG/2 ML VIAL IV ONE (09:12)
[2023-08-28] MEDS: SODIUM CHLORIDE 0.9% 2,000 ML IV ONE (09:39)
[2023-08-28] MEDS ORDERED: SODIUM CHLORIDE 0.9% 1,000 ML IV SCH (09:45)
[2023-08-28] MEDS ORDERED: LACTULOSE 20Gm/30ML SOLN NG SCH (10:00)
[2023-08-28] MEDS ORDERED: BUME2TAB5 PO (10:01)
[2023-08-28] MEDS: DOPamine 1600MCG/ML D5W 250 ML IV SCH (10:04)
[2023-08-28] MEDS: MIDODRINE HCL 10 MG TAB GT ONE (11:24)
[2023-08-28] MEDS: SODIUM CHL 0.9% 1000 ML BAG XX ONE (11:25)
[2023-08-28] MEDS: PHENYLEPHRINE INJ 80 MG in SODIUM CHL 0.9% 242 ML IV SCH (11:26)
[2023-08-28] MEDS: EPINEPHrine HCL INJECTION 16 MG in D5W 5% 234 ML IV SCH (11:26)
[2023-08-28] MEDS: NOREPINEPHRINE BITARTRATE 32 MG in SODIUM CHL 0.9% 218 ML IV SCH (11:26)
[2023-08-28] MEDS: PHENYLEPHRINE IV 250 ML IV ONE (14:08)
[2023-08-28] MEDS: NOREPINEPHRINE 8 MG/250ML KIT 250 ML IV ONE (14:08)
[2023-08-28] MEDS: LORazepam 2MG/ML-1ML VIAL IV PRN (19:29)
[2023-08-28] MEDS: MORPHINE SULFATE INJ 2 MG/ml SYRG IV PRN (19:30)
[2023-08-28] MEDS ORDERED: EPOETIN ALFA-EPBX 10,000 UNIT/1ML VIAL SC ONE (21:00)
[2023-08-29 08:53] LABS: Hepatitis B Surface Antigen Negative (Negative)
[2023-08-29 09:14] LABS: Hepatitis B Core IgM Negative
[2023-08-29 09:16] LABS: Hepatitis A Ab IgM Negative
[2023-08-29 09:17] LABS: Hepatitis C Antibody Negative (Negative)
[2023-09-25] MEDS: fentaNYL CITRATE 100 MCG/2 ML VL IV ONE (03:00)
== END 2023-08-28 19:55 | DRG 280 ==
LOC: EDBD 19:05 → ER 19:05 → OVERFLOW 21:40 → TELE 21:40 → UNDOADMIN 21:40 → ER 08-28 19:55
PROVIDERS: ADMIT Nurse Practitioner; ATTEND Nurse Practitioner
PROC: 02HV33Z Insertion of Infusion Device into Superior Vena Cava, Percutaneous Approach (ICD-10-PCS; principal; 2023-08-27)
PROC: 5A1935Z Respiratory Ventilation, Less than 24 Consecutive Hours (ICD-10-PCS; 2023-08-27)
PROC: B548ZZA Ultrasonography of Superior Vena Cava, Guidance (ICD-10-PCS; 2023-08-27)
PROC: 0BH17EZ Insertion of Endotracheal Airway into Trachea, Via Natural or Artificial Opening (ICD-10-PCS; 2023-08-27)
DX: K70.31 Alcoholic cirrhosis of liver with ascites (principal); J96.01 Acute respiratory failure with hypoxia; K76.7 Hepatorenal syndrome; N17.0 Acute kidney failure with tubular necrosis; G93.41 Metabolic encephalopathy; D69.6 Thrombocytopenia, unspecified; E87.1 Hypo-osmolality and hyponatremia; I46.9 Cardiac arrest, cause unspecified; I50.33 Acute on chronic diastolic (congestive) heart failure; I21.4 Non-ST elevation (NSTEMI) myocardial infarction; E87.4 Mixed disorder of acid-base balance; G93.1 Anoxic brain damage, not elsewhere classified; I27.20 Pulmonary hypertension, unspecified; F17.210 Nicotine dependence, cigarettes, uncomplicated; Z66 Do not resuscitate; E87.5 Hyperkalemia; I13.0 Hypertensive heart and chronic kidney disease with heart failure and stage 1 through stage 4 chronic kidney disease, or unspecified chronic kidney disease; N18.30 Chronic kidney disease, stage 3 unspecified; Z51.5 Encounter for palliative care; Z88.0 Allergy status to penicillin; Z83.3 Family history of diabetes mellitus
CPT/HCPCS: 31500; 36415; 36556; 36600; 71045; 80053; 80074; 82140; 82247; 82805; 82962; 83880; 84484; 85025; 85610; 85730; 87070; 87205; 93005; 99152; 99153; 99291; G0378; J0171; J0330; J1815; J2704; J7060; P9047